=== PATIENT | female | born 1965 | race Caucasian/White ===

== ENCOUNTER 2025-01-10 11:35 | Emergency (ER) | payer BC, SELFPAY ==
--- NOTE | 2025-01-10 | ECG_ITS ---
Test Reason : CP Blood Pressure : */* mmHG Vent. Rate : 74 BPM Atrial Rate : 74 BPM P-R Int : 178 ms QRS Dur : 80 ms QT Int : 378 ms P-R-T Axes : 16 -8 12 degrees QTcB Int : 419 ms Normal sinus rhythm Normal ECG No previous ECGs available Referred By: Generic ED Physician Electronically Signed By: PERLITA GANDHI
[2025-01-10 11:57] VITALS: BP 150/77; PULSE 88; RESP 18; TEMP 37.1; O2SAT 97; BMI 29.2
--- NOTE | 2025-01-10 11:57 | ED_ITS ---
HPI - General Adult General Chief complaint: General Medical Stated complaint: chest tightness, sob, upper neck pain Time Seen by Provider: 01/10/25 13:18 History of Present Illness HPI narrative: [id number], with a history of depression, hypothyroidism on levothyroxine, alopecia who presents to the emergency department for evaluation of multiple complaints. Patient states that she has just not been feeling right for the past 4 days. She states that she went to work this morning at 08:30. 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 She described as a soreness. The pain was worse with movement and lasted a proximally 45 minutes. She states she developed nausea and felt short of breath with the symptom. She also had numbness to the left side of her face. She states that several days ago, she did have a tightness in her left chest and left arm but he has not had recurrence of the symptoms. She states that she has been feeling fatigued over the past 3-4 days. She did have abdominal pain 3 days prior but this resolved after she urinated. She states that she has had intermittent headaches. She denied fever, chills, rhinorrhea, sore throat, cough, dark stools or bloody stools. At the time my evaluation she states that she is having numbness in the left side of her face but her other symptoms have improved. Related Data Previous Rx's ?Medication ?Instructions ?Recorded lorazepam 1 mg tablet (Ativan) 1 mg PO BEDTIME PRN ins omnia #7 01/10/25 tabs Allergies Allergy/AdvReac Type Severity Reaction Status Date / Time amoxicillin Allergy Unknown Verified 01/10/25 12:01 vancomycin Allergy Unknown Verified 01/10/25 12:01 Review of Systems 2 Review of Systems: Yes all other systems are reviewed and are negative [facility] Past Medical History [facility] Narrative: Social history: The patient is a former smoker. She smoked for proximally 23 years but quit 10 years ago. She denies drug use. She drinks alcohol once a week and when she drinks she will drink 3-4 glasses of wine or mixed drinks. Social History Social History Alcohol intake: current Alcohol intake frequency: a few times a month Smoked in Last 30 Days: No Use of substances other than those prescribed or required for medical reasons: No Advance Directives: No Advance Directives Information Provided: Yes Physical Exam ED Vital Signs: Vital Signs - 24 hr 01/10/25 11:57 Temperature 98.7 F Pulse Rate 88 Respiratory Rate 18 Blood Pressure 150/77 H Pulse Oximetry 97 Oxygen Delivery Method Room Air BMI result Body Mass Index 29.2 Vital signs revealed an elevated blood pressure of 150/77 otherwise unremarkable Exam: General: Awake, alert in no distress Head: Normocephalic, atraumatic EENT: PERRL, Lids normal, sclera normal, conjunctiva normal, nose normal , ears normal, throat without erythema or exudates Neck: Supple, no adenopathy Lung: breath sounds symmetric, no wheezing, rales or rhonchi Chest: symmetric movement, nontender Heart: regular rate and rhythm, normal S1, S2 no murmurs or rubs Abdomen: soft, non-tender, nondistended, normal bowel sounds Back: no vertebral tenderness, no CVAT Extremities: no deformities, moves all extremities symmetrically Neuro: General: ?Awake, alert, oriented, normal speech Cranial nerves: ?Cranial nerves ?intact Strength: ?Moves all extremities symmetrically, strength 5/5 Cerebellar: ?Good [id number]-tmhl-[id number]-finger, good rapid finger movement, normal heel to magdaleno Psych: Pleasant, cooperative NIH Stroke Scale Internal: Other (At the time of my initial evaluation) Level of Consciousness: Alert Level of Consciousness Questions: Answers both questions correctly Level of Consciousness Commands: Performs both tasks correctly Best Gaze: Normal Visual: No visual loss Facial Palsy: Normal Motor Arm (Right): No drift Motor Arm (Left): No drift Motor Leg (Right): No drift Motor Leg (Left): No drift Limb Ataxia: Absent Sensory: Normal Best Language: No aphasia Dysarthia: Normal Extinction and Inattention: No abnormality Score: 0 Course Course Course Narrative: This is an RME: Additional HPI, ROS, PE not included below will be deferred to primary provider. RME assessment and note performed by: Dee Landa PA-C This is a [id number]-female, with a hx of depression, hypothyroidism on levothyroxine, alopecia, who presents to the ER with multiple complaints. Reports that while she was at work she suddenly felt pain in the back of her neck > lasted for 10 minutes. Was at a table taking an order and felt suddenly nauseous. She then developed numbness on the left side of her face. Reports that her symptoms started this morning around 8:00AM. Reports headache started in the last 45 minutes. Reported several days ago she had chest tightness that radiated into her left shoulder. She is neurologically intact, NIH 0 Plan: Labs, EKG, further ER eval needed Medical Decision Making Medical Decision Making MDM Narrative: [id number]-female, with a history of depression, hypothyroidism on levothyroxine, alopecia who presents to the emergency department for evaluation of multiple complaints. Patient states that she has just not been feeling right for the past 4 days. She states that she went to work this morning at 08:30. 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 She described as a soreness. The pain was worse with movement and lasted a proximally 45 minutes. She states she developed nausea and felt short of breath with the symptom. She also had numbness to the left side of her face. She states that several days ago, she did have a tightness in her left chest and left arm but he has not had recurrence of the symptoms. She states that she has been feeling fatigued over the past 3-4 days. She did have abdominal pain 3 days prior but this resolved after she urinated. She states that she has had intermittent headaches. She denied fever, chills, rhinorrhea, sore throat, cough, dark stools or bloody stools. At the time my evaluation she states that she is having numbness in the left side of her face but her other symptoms have improved. Vital signs revealed an elevated blood pressure otherwise unremarkable. Physical examination was unremarkable with a normal neurologic exam. Differential diagnosis: ?Includes but is not limited to intracranial hemorrhage, stroke, headache, migraine syndrome , myocardial infarction, myocardial ischemia, anemia, electrolyte abnormalities, Course: My independent interpretation patient's laboratory evaluation is as follows: CBC was normal. CMP was normal. Troponin was below detectable limits. COVID- 19, influenza and RSV were negative. TSH was normal at 2.65. Twelve EKG was unremarkable. Given her normal examination and her negative NIH stroke scale I do not think that the patient has had a stroke at this time but I do not have a clear etiology for her symptoms and I did discuss this with her. The patient has been under increased stress secondary to social issues and secondary to her work schedule. 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 I do not think that the patient's symptoms are due and Tylenol every 2 anxiety but she may have fatigue and exhaustion secondary to her work schedule and I did discuss this with her. Patient was given a return to work note x3 days. He has been having difficulty sleeping therefore she was given a prescription for Ativan 1 mg tablets to take at night to help with her sleep and her insomnia. I did tell the patient that I do not have a cause for her symptoms and that if her symptoms returned or if she developed any new symptoms that were concerning to her she should return to the emergency department so that we can re-evaluate her. Patient was given printed and verbal instructions and discharged home. Admission/Observation Consideration of admission/observation: Escalation of care including admission/observation considered (Yes) Lab Data MDM Lab Attestation statement: I reviewed the patient's lab results. 01/10/25 12:19 01/10/25 12:19 Labs: Lab Results 01/10/25 01/10/25 01/10/25 Range/Units 12:19 12:19 12:19 WBC 8.4 (4.8-10.8) X10*3/uL RBC 4.74 (4.20-5.50) X10*6/uL Hgb 14.9 (12.0-16.0) g/dl Hct 42.0 (37.0-47.0) % MCV 88.6 (80.0-98.0) fL MCH 31.4 (27.0-33.0) pg MCHC 35.5 H (31.0-35.0) g/dl RDW 12.4 (11.0-16.0) % Plt Count 261 (160-400) X10*3/uL MPV 9.2 L (9.4-12.3) fL Immature Gran % (Auto) 0.4 (0.0-0.4) % Neut % (Auto) 63.0 (45-73) % Lymph % (Auto) 28.6 (20-40) % [place] % (Auto) 6.1 (2-11) % Eos % (Auto) 1.4 (0-4) % Baso % (Auto) 0.5 (0-2) % Lymph # (Auto) 2.4 (1.2-4.9) X10*3/uL [place] # (Auto) 0.5 (0.1-1.2) X10*3/uL Eos # (Auto) 0.1 (0.0-0.4) X10*3/uL Baso # (Auto) 0.0 (0.0-0.2) X10*3/uL Abs Immat Gran (auto) 0.03 (0.00-0.03) X10*3/uL Absolute Neuts (auto) 5.3 (2.0-8.3) x10*3/uL Absolute Nucleated RBC 0.000 (0.0-0.012) X10*3/uL Nucleated RBC % (auto) 0.0 (0.0-0.2) /100WBC Sodium Cancelled 138 Potassium Cancelled 4.7 Chloride Cancelled Carbon Dioxide Anion Gap BUN Creatinine Estim Creat Clear Calc Estimated GFR Random Glucose Calcium Magnesium Total Bilirubin Direct Bilirubin AST ALT Alkaline Phosphatase Troponin I High Sens (<3.5-17.0) ng/L Total Protein Albumin Lipase TSH (0.32-4.0) uIU/mL Influenza Type A (PCR) (Negative) Influenza Type B (PCR) (Negative) RSV RNA Qual (PCR) (Negative) SARS-CoV-2 RNA (RT-PCR) (Negative) 01/10/25 01/10/25 01/10/25 Range/Units 12:19 12:19 12:19 WBC (4.8-10.8) X10*3/uL RBC (4.20-5.50) X10*6/uL Hgb (12.0-16.0) g/dl Hct (37.0-47.0) % MCV (80.0-98.0) fL MCH (27.0-33.0) pg MCHC (31.0-35.0) g/dl RDW (11.0-16.0) % Plt Count (160-400) X10*3/uL MPV (9.4-12.3) fL Immature Gran % (Auto) (0.0-0.4) % Neut % (Auto) (45-73) % Lymph % (Auto) (20-40) % [place] % (Auto) (2-11) % Eos % (Auto) (0-4) % Baso % (Auto) (0-2) % Lymph # (Auto) (1.2-4.9) X10*3/uL [place] # (Auto) (0.1-1.2) X10*3/uL Eos # (Auto) (0.0-0.4) X10*3/uL Baso # (Auto) (0.0-0.2) X10*3/uL Abs Immat Gran (auto) (0.00-0.03) X10*3/uL Absolute Neuts (auto) (2.0-8.3) x10*3/uL Absolute Nucleated RBC (0.0-0.012) X10*3/uL Nucleated RBC % (auto) (0.0-0.2) /100WBC Sodium Potassium Chloride 104 Carbon Dioxide Cancelled 25 Anion Gap Cancelled 14 BUN Cancelled Creatinine Estim Creat Clear Calc Estimated GFR Random Glucose Calcium Magnesium Total Bilirubin Direct Bilirubin AST ALT Alkaline Phosphatase Troponin I High Sens (<3.5-17.0) ng/L Total Protein Albumin Lipase TSH (0.32-4.0) uIU/mL Influenza Type A (PCR) (Negative) Influenza Type B (PCR) (Negative) RSV RNA Qual (PCR) (Negative) SARS-CoV-2 RNA (RT-PCR) (Negative) 01/10/25 01/10/25 01/10/25 Range/Units 12:19 12:19 12:19 WBC (4.8-10.8) X10*3/uL RBC (4.20-5.50) X10*6/uL Hgb (12.0-16.0) g/dl Hct (37.0-47.0) % MCV (80.0-98.0) fL MCH (27.0-33.0) pg MCHC (31.0-35.0) g/dl RDW (11.0-16.0) % Plt Count (160-400) X10*3/uL MPV (9.4-12.3) fL Immature Gran % (Auto) (0.0-0.4) % Neut % (Auto) (45-73) % Lymph % (Auto) (20-40) % [place] % (Auto) (2-11) % Eos % (Auto) (0-4) % Baso % (Auto) (0-2) % Lymph # (Auto) (1.2-4.9) X10*3/uL [place] # (Auto) (0.1-1.2) X10*3/uL Eos # (Auto) (0.0-0.4) X10*3/uL Baso # (Auto) (0.0-0.2) X10*3/uL Abs Immat Gran (auto) (0.00-0.03) X10*3/uL Absolute Neuts (auto) (2.0-8.3) x10*3/uL Absolute Nucleated RBC (0.0-0.012) X10*3/uL Nucleated RBC % (auto) (0.0-0.2) /100WBC Sodium Potassium Chloride Carbon Dioxide Anion Gap BUN 16 Creatinine Cancelled 0.82 Estim Creat Clear Calc Cancelled 84.6 Estimated GFR Cancelled Random Glucose Calcium Magnesium Total Bilirubin Direct Bilirubin AST ALT Alkaline Phosphatase Troponin I High Sens (<3.5-17.0) ng/L Total Protein Albumin Lipase TSH (0.32-4.0) uIU/mL Influenza Type A (PCR) (Negative) Influenza Type B (PCR) (Negative) RSV RNA Qual (PCR) (Negative) SARS-CoV-2 RNA (RT-PCR) (Negative) 01/10/25 01/10/25 01/10/25 Range/Units 12:19 12:19 12:19 WBC (4.8-10.8) X10*3/uL RBC (4.20-5.50) X10*6/uL Hgb (12.0-16.0) g/dl Hct (37.0-47.0) % MCV (80.0-98.0) fL MCH (27.0-33.0) pg MCHC (31.0-35.0) g/dl RDW (11.0-16.0) % Plt Count (160-400) X10*3/uL MPV (9.4-12.3) fL Immature Gran % (Auto) (0.0-0.4) % Neut % (Auto) (45-73) % Lymph % (Auto) (20-40) % [place] % (Auto) (2-11) % Eos % (Auto) (0-4) % Baso % (Auto) (0-2) % Lymph # (Auto) (1.2-4.9) X10*3/uL [place] # (Auto) (0.1-1.2) X10*3/uL Eos # (Auto) (0.0-0.4) X10*3/uL Baso # (Auto) (0.0-0.2) X10*3/uL Abs Immat Gran (auto) (0.00-0.03) X10*3/uL Absolute Neuts (auto) (2.0-8.3) x10*3/uL Absolute Nucleated RBC (0.0-0.012) X10*3/uL Nucleated RBC % (auto) (0.0-0.2) /100WBC Sodium Potassium Chloride Carbon Dioxide Anion Gap BUN Creatinine Estim Creat Clear Calc Estimated GFR > 60 Random Glucose Cancelled 108 Calcium Cancelled 9.5 Magnesium Cancelled Total Bilirubin Direct Bilirubin AST ALT Alkaline Phosphatase Troponin I High Sens (<3.5-17.0) ng/L Total Protein Albumin Lipase TSH (0.32-4.0) uIU/mL Influenza Type A (PCR) (Negative) Influenza Type B (PCR) (Negative) RSV RNA Qual (PCR) (Negative) SARS-CoV-2 RNA (RT-PCR) (Negative) 01/10/25 01/10/25 01/10/25 Range/Units 12:19 12:19 12:19 WBC (4.8-10.8) X10*3/uL RBC (4.20-5.50) X10*6/uL Hgb (12.0-16.0) g/dl Hct (37.0-47.0) % MCV (80.0-98.0) fL MCH (27.0-33.0) pg MCHC (31.0-35.0) g/dl RDW (11.0-16.0) % Plt Count (160-400) X10*3/uL MPV (9.4-12.3) fL Immature Gran % (Auto) (0.0-0.4) % Neut % (Auto) (45-73) % Lymph % (Auto) (20-40) % [place] % (Auto) (2-11) % Eos % (Auto) (0-4) % Baso % (Auto) (0-2) % Lymph # (Auto) (1.2-4.9) X10*3/uL [place] # (Auto) (0.1-1.2) X10*3/uL Eos # (Auto) (0.0-0.4) X10*3/uL Baso # (Auto) (0.0-0.2) X10*3/uL Abs Immat Gran (auto) (0.00-0.03) X10*3/uL Absolute Neuts (auto) (2.0-8.3) x10*3/uL Absolute Nucleated RBC (0.0-0.012) X10*3/uL Nucleated RBC % (auto) (0.0-0.2) /100WBC Sodium Potassium Chloride Carbon Dioxide Anion Gap BUN Creatinine Estim Creat Clear Calc Estimated GFR Random Glucose Calcium Magnesium 2.1 Total Bilirubin Cancelled 0.8 Direct Bilirubin Cancelled 0.2 AST Cancelled ALT Alkaline Phosphatase Troponin I High Sens (<3.5-17.0) ng/L Total Protein Albumin Lipase TSH (0.32-4.0) uIU/mL Influenza Type A (PCR) (Negative) Influenza Type B (PCR) (Negative) RSV RNA Qual (PCR) (Negative) SARS-CoV-2 RNA (RT-PCR) (Negative) 01/10/25 01/10/25 01/10/25 Range/Units 12:19 12:19 12:19 WBC (4.8-10.8) X10*3/uL RBC (4.20-5.50) X10*6/uL Hgb (12.0-16.0) g/dl Hct (37.0-47.0) % MCV (80.0-98.0) fL MCH (27.0-33.0) pg MCHC (31.0-35.0) g/dl RDW (11.0-16.0) % Plt Count (160-400) X10*3/uL MPV (9.4-12.3) fL Immature Gran % (Auto) (0.0-0.4) % Neut % (Auto) (45-73) % Lymph % (Auto) (20-40) % [place] % (Auto) (2-11) % Eos % (Auto) (0-4) % Baso % (Auto) (0-2) % Lymph # (Auto) (1.2-4.9) X10*3/uL [place] # (Auto) (0.1-1.2) X10*3/uL Eos # (Auto) (0.0-0.4) X10*3/uL Baso # (Auto) (0.0-0.2) X10*3/uL Abs Immat Gran (auto) (0.00-0.03) X10*3/uL Absolute Neuts (auto) (2.0-8.3) x10*3/uL Absolute Nucleated RBC (0.0-0.012) X10*3/uL Nucleated RBC % (auto) (0.0-0.2) /100WBC Sodium Potassium Chloride Carbon Dioxide Anion Gap BUN Creatinine Estim Creat Clear Calc Estimated GFR Random Glucose Calcium Magnesium Total Bilirubin Direct Bilirubin AST 27 ALT Cancelled 29 Alkaline Phosphatase Cancelled 74 Troponin I High Sens < 2.7 (<3.5-17.0) ng/L Total Protein Cancelled Albumin Lipase TSH (0.32-4.0) uIU/mL Influenza Type A (PCR) (Negative) Influenza Type B (PCR) (Negative) RSV RNA Qual (PCR) (Negative) SARS-CoV-2 RNA (RT-PCR) (Negative) 01/10/25 01/10/25 01/10/25 Range/Units 12:19 12:19 12:19 WBC (4.8-10.8) X10*3/uL RBC (4.20-5.50) X10*6/uL Hgb (12.0-16.0) g/dl Hct (37.0-47.0) % MCV (80.0-98.0) fL MCH (27.0-33.0) pg MCHC (31.0-35.0) g/dl RDW (11.0-16.0) % Plt Count (160-400) X10*3/uL MPV (9.4-12.3) fL Immature Gran % (Auto) (0.0-0.4) % Neut % (Auto) (45-73) % Lymph % (Auto) (20-40) % [place] % (Auto) (2-11) % Eos % (Auto) (0-4) % Baso % (Auto) (0-2) % Lymph # (Auto) (1.2-4.9) X10*3/uL [place] # (Auto) (0.1-1.2) X10*3/uL Eos # (Auto) (0.0-0.4) X10*3/uL Baso # (Auto) (0.0-0.2) X10*3/uL Abs Immat Gran (auto) (0.00-0.03) X10*3/uL Absolute Neuts (auto) (2.0-8.3) x10*3/uL Absolute Nucleated RBC (0.0-0.012) X10*3/uL Nucleated RBC % (auto) (0.0-0.2) /100WBC Sodium Potassium Chloride Carbon Dioxide Anion Gap BUN Creatinine Estim Creat Clear Calc Estimated GFR Random Glucose Calcium Magnesium Total Bilirubin Direct Bilirubin AST ALT Alkaline Phosphatase Troponin I High Sens (<3.5-17.0) ng/L Total Protein 7.8 Albumin Cancelled 4.9 Lipase Cancelled 31 TSH 2.65 (0.32-4.0) uIU/mL Influenza Type A (PCR) NEGATIVE (Negative) Influenza Type B (PCR) NEGATIVE (Negative) RSV RNA Qual (PCR) NEGATIVE (Negative) SARS-CoV-2 RNA (RT-PCR) NEGATIVE (Negative) Independent Interpretation I performed an independent interpretation of an: EKG Interpretation: My interpretation patient's 12 EKG done on 01/10/2025 at 11:49 hours is as follows: Normal sinus rhythm rate of 74, normal GA interval, QRS duration, QTC interval, no ST segment elevation, no ST segment depression, inverted T-waves in lead 3 and V1, no PACs, no PVCs-this is a normal EKG. No previous EKG for comparison. Independent Historian Clinical information obtained from an independent historian. History obtained from or confirmed by: Other (Daughter) Prescription Management I considered prescription management with: Other (Ativan) Chronic Conditions Patient?s care impacted by: Other (Hypothyroidism) Discharge Plan Discharge Clinical Impression: Facial numbness, Chest pain, Abdominal pain Patient Disposition: Home, Self-Care Additional Instructions: At this time, your neurologic examination was unremarkable. I do not think that your having a stroke, bleed in your brain or Helm's palsy (compression of the facial nerve close) You did have abdominal tenderness but I do not think that you have a problem with the gallbladder based on your tenderness and your normal laboratory evaluation. Your EKG was unremarkable and your marker of heart attack troponin was below detectable limits. Your thyroid screening test (TSH) was normal and I do not think that your symptoms are due to your thyroid condition. You are under stress and some of your symptoms may be secondary to over working and not sleeping enough. Therefore I am giving you a work note not to return to work for 3 days. I am also prescribing Ativan 1 mg pills, take 1 pill at night. This will help you sleep and hopefully making feel better. Follow-up with your doctor in 2 days. Please return to the emergency department if your symptoms get worse or if you develop any symptoms that are concerning to you. Prescriptions: New lorazepam [Ativan] 1 mg tablet 1 mg PO BEDTIME PRN (Reason: insomnia) Qty: 7 0RF Stand Alone Forms: Work/School Release Interventions: ED Discharge Assessment Last Done: 01/10/25 14:29 Discharge Date/Time: 01/10/25 14:30 Print Language: Syriac
[2025-01-10 12:25] LABS: MANUAL DIFF FLAG NO
[2025-01-10 12:26] LABS: Hematocrit 42.0 % (37.0-47.0); Hemoglobin 14.9 g/dl (12.0-16.0); Imm Gran Abs Auto 0.03 X10*3/uL (0.00-0.03); Imm Gran Pct Auto 0.4 % (0.0-0.4); Lymphocytes Absolute Auto 2.4 X10*3/uL (1.2-4.9); Mean Corpuscular HGB Conc 35.5 g/dl (31.0-35.0); Mean Corpuscular Hemoglobin 31.4 pg (27.0-33.0); Mean Corpuscular Volume 88.6 fL (80.0-98.0); NRBC Abs Auto 0.000 X10*3/uL (0.0-0.012); NRBC Pct Auto 0.0 /100WBC (0.0-0.2); Platelet Count 261 X10*3/uL (160-400); Red Blood Count 4.74 X10*6/uL (4.20-5.50); White Blood Count 8.4 X10*3/uL (4.8-10.8)
[2025-01-10 12:47] LABS: Alanine Aminotransferase 29 U/L (0-31); Albumin Level 4.9 g/dL (3.5-5.0); Alkaline Phosphatase 74 U/L (39-117); Anion Gap 14 (12-20); Aspartate Amino Transferase 27 U/L (5-31); Blood Urea Nitrogen 16 mg/dL (9-16); Calcium 9.5 mg/dL (8.4-10.2); Carbon Dioxide 25 mmol/L (22-29); Chloride 104 mmol/L (96-108); Creatinine Clr Calc Pharmacy 84.6; Estimated Glomerular Filt Rate > 60; Lipase 31 U/L (8-78); Magnesium 2.1 mg/dL (1.6-2.6); Potassium 4.7 mmol/L (3.3-5.1); Sodium 138 mmol/L (135-145); Total Protein 7.8 g/dL (6.5-8.0)
[2025-01-10 12:49] LABS: Troponin-I High Sensitivity < 2.7 ng/L (<3.5-17.0)
[2025-01-10 13:09] LABS: Resp Syncy Virus RNA Qual PCR NEGATIVE (Negative); SARS COV2 PCR INHOUSE NEGATIVE (Negative)
[2025-01-10 14:13] VITALS: BP 125/77; PULSE 66; RESP 16; TEMP 36.7; O2SAT 94
[2025-01-10 14:29] VITALS: BP 125/77; PULSE 66; RESP 16; TEMP 36.7; O2SAT 94
== END 2025-01-10 14:30 | disposition home or self-care (01) ==
PROVIDERS: Physician Assistant Medical; Emergency Provider Emergency Medicine Emergency Medical Services; PCP Physician Assistant Surgical
DX: R20.0 Anesthesia of skin (principal); R07.9 Chest pain, unspecified; R10.9 Unspecified abdominal pain; R06.02 Shortness of breath; R29.700 NIHSS score 0; E03.9 Hypothyroidism, unspecified; Z87.891 Personal history of nicotine dependence; Z79.899 Other long term (current) drug therapy; Z03.818 Encounter for observation for suspected exposure to other biological agents ruled out; Z72.89 Other problems related to lifestyle; Z56.3 Stressful work schedule
CPT/HCPCS: 36415; 80048; 80076; 83690; 83735; 84443; 84484; 85025; 87637; 93005; 99283; 99284

== ENCOUNTER → 2025-01-10 11:49 | Outpatient (BNV) | payer BC, SELFPAY | PROVIDERS: Emergency Provider Emergency Medicine Emergency Medical Services; PCP Physician Assistant Surgical; Visit Provider Internal Medicine | DX: R07.9 Chest pain, unspecified (principal) | CPT/HCPCS: 93010 ==

== ENCOUNTER 2025-03-23 11:15 | Outpatient (REF) | payer BC, SELFPAY ==
--- NOTE | ~2025-03-23 | MM_ITS ---
EXAMINATION: MM SCREENING DIGITAL BREAST TOMOSYNTHESIS, BILATERAL CLINICAL INFORMATION: Screening. Asymptomatic. COMPARISON: Mammography: Comparison is made with available priors TECHNIQUE: Digital breast mammography with tomosynthesis is performed in both the craniocaudal and mediolateral oblique views along with computer-aided detection (CAD). FINDINGS: There are scattered areas of fibroglandular density. Right: There is architectural distortion in the upper outer breast middle to posterior depth. No suspicious other abnormal findings. No suspicious calcifications. Marker clip. Left: There are no significant masses, abnormal calcifications, or other abnormalities. MM/MM tomosynthesis screening BI IMPRESSION: Additional imaging is recommended ASSESSMENT: BI-RADS Category 0: Incomplete - Need additional Imaging Evaluation RECOMMENDATION: 1. Additional views of the right breast. 2. Targeted ultrasound if warranted after review of the additional views. 3. Radiology department staff will contact the patient for additional imaging. Additional Imaging required Electronically signed by: Adela Segundo DO 03/24/2025 10:04 AM EDT
== END 2025-03-23 11:16 | disposition home or self-care (01) ==
LOC: HO.MAMMO 11:15
PROVIDERS: PCP Physician Assistant Surgical; Visit Provider Obstetrics & Gynecology
DX: Z12.31 Encounter for screening mammogram for malignant neoplasm of breast (principal)
CPT/HCPCS: 77063; 77067

== ENCOUNTER → 2025-03-23 11:15 | Outpatient (BNV) | payer BC, SELFPAY | PROVIDERS: PCP Physician Assistant Surgical; Visit Provider Internal Medicine | DX: Z12.31 Encounter for screening mammogram for malignant neoplasm of breast (principal) | CPT/HCPCS: 77063; 77067 ==

== ENCOUNTER 2025-04-28 12:50 | Outpatient (REF) | payer BC, SELFPAY ==
--- OUTSIDE RECORDS SUMMARY | 2025-04-27 09:00 | XMS_ITS | Encounter Summary ---
Author Organization [facility] Address [address] [place] [address] Phone Care Team Providers Care Channeling Machine Runner Name Role Phone JosePiadotty Hein DO Unavailable [phone] Chidi Adair PA-C Primary Care Provider [phone] Joshua Middleton MD Unavailable [phone] Reason for Visit * Reason Comments Sinus Congestion Virtual clinical sup port Encounter Details Date Type Department Care Team (Late st Contact Info) Description 04/27/2025 9:00 AM EST Telemedicine [facility] VIRTUAL CLINIC SUPPORT [address] [place] [address] Alvarez Cormier PA-C, MPH [address] [address] [email or web address] Sinusitis, unspecified chronicity, unspecified location (Primary Dx) Social History Tobacco Use Types Packs/Day Years Used Date Smoking Tobacco: Former Cigarettes 0.3 23.8 0 12/17/1978 - 10/02/2002 Smokeless Tobacco: Never Alcohol Use Standard Drinks/Week Comments Yes 0 (1 standard drink = 0.6 oz pur e alcohol) 3-4 drinks, 2-4 times a month Child or Family Care Answer Date Record ed Do you have problems with on e of the following making it difficult for you to work, study, or receive health care? No 01/26/2025 Education Answer Date Recorded Are you interested in help w ith more adult education (for example, completing high school, GED, job training, learning the Salvadorean language, technical skills, or developing parenting skills)? No 01/26/2025 Are you concerned about learning? Not on file 01/26/2025 No 01/26/2025 Yes 01/26/2025 Food Answer Date Recorded Within the past 6 months we worried whether our food would run out before we got money to buy more. Never True 01/26/2025 Within the past 6 months the food we bought just didn't last and we didn't have enough money to get more. Never True Residential Stability Answer Date Recor ded What is your housing situation today? I have andi sing 01/26/2025 How many times have you move d in the past 12 months? Zero (I did not move) 01/26/2025 Paying for Meds Answer Date Recorded Do you have trouble paying for medicines? No 01/26/2025 Paying Utility Bills Answer Date Record ed Do you have trouble paying y our heating or electricity bill? I choose not to answer 01/26/2025 Transportation Answer Date Recorded Has the lack of transportati on kept you from medical appointments or from getting medications? No 01/26/2025 Unemployment Answer Date Recorded Are you currently unemployed or working on a part-time or temporary basis, and looking for work? No 09/01/2022 Digital Access Answer Date Recorded No 01/26/2025 Yes 01/26/2025 Do you have reliable internet access at home? Ye s 01/26/2025 Do you have a device (e.g., phone, tablet, computer) with a working camera? Yes 01/26/2025 Intimate Partner Violence Answer Date R ecorded Are you denied basic needs s uch as food, clothing, or medical care? No 01/26/2025 In the past 12 months have y ou been in a relationship with a person who hurts, threatens, or tries to control you? No 01/26/2025 Are you denied basic needs s uch as food, clothing, or medical care? No 01/26/2025 In the past 12 months have y ou been in a relationship with a person who hurts, threatens, or tries to control you? No 01/26/2025 Comments No Sex and Gender Information Value Date Recorded Sex Assigned at Female 10/23/2019 6:16 PM EDT Legal Sex Female 9:38 PM EDT Gender Identity Female 10/23/2019 6:16 PM EDT Sexual Orientation Not on file documented as of this encounter Patient Instructions * Patient Instructions* Alvarez Cormier PA-C, MPH - 04/27/2025 9:00 AM EST supervisor instrument mechanics [place] med sinus rinse and Flonase nasal spray Additional remedies: Congestion: Steam treatment 3x/day (extra few minutes in your shower and standing a few seconds over pot of steamy water 2x/day) Saline nasal spray 3x/day, Sinus rinse for serve congestion (NeilMed Sinus Rinse) Flonase - steroid nasal spray meant to be used once daily. This may or may not help, but it wont hurt. Pseudoephedrine - decongestant - this often found in medications such as Advil Cold & Sinus, socheck the labels. You take this every 4-6 hrs as needed. It can be stimulating, therefore it may keep you up. This medication may also raise blood pressure, so if you have a history of high blood pressure it is best to avoid this. For headache, sore throat, body aches/ general malaise: Tylenol 2 tablets (650mg) every 4-6 hours as needed for discomfort OR Advil 400 mg 3x/day with food OR Aleve 220 mg twice daily. Please be mindful if you are able to take NSAIDs or not. If you are unsure please contact our office. For sore throat, you may try Cepacol throat lozenges or chloraseptic spray, [place]' throat lozenges as needed Cough: Delsym is available over the counter Please be mindful that maybe over the counter cold medications often contain more than one active ingredient. Always check labels to make sure you are not using multiple medications with then same active ingredients. Always read medication labels and contraindications. Seek care if symptoms not resolving over next few days, or if you get a temperature 101 or above, short of breath, or other concerning symptoms. Please let us know immediately if symptoms worsen in any way. documented in this encounter Progress Notes * Alvarez Cormier PA-C, MPH - 04/27/2025 9:00 AM EST Images from the original note were not included. VIRTUAL CLINIC SUPPORT Assessment and Plan: Assessment & Plan Sinusitis, unspecified chronicity, unspecified location Patient with about a week of upper respiratory infection symptoms now has localized to the right greater than left frontal and maxillary sinuses along with postnasal drip and copious nasal discharge.There are no red flags. Patient notes she has had sinus infections in the past and this feels similar. We discussed management in detail. Agreed to send prescription for doxycycline as below. Also recommend starting a sinus rinse such as a NeilMed sinus rinse. We discussed return precautions in themeantime. Symptom management as below and over the counter per avs Encouraged fluids, rest, well rounded diet Discussed return precautions Discussed possible side effects and administration instructions for below medication Orders: doxycycline monohydrate (MONODOX) 100 MG capsule; Take 1 capsule (100 mg total) by mouth 2 (two) times a day. Follow Up: Patient was instructed to seek in person follow up care if symptoms do not improve or worsen in any way. Chief complaint: Patient presents for VIRTUAL VIDEO VISIT for Chief Complaint Patient presents with Sinus Congestion Virtual clinical support History of Present Illness: Ramonita Parker is a 59 y.o. female with concern of last Sunday started with dry scratchy throat,felt had swollen lymph nodes, sore throat now with predominate sinus congestion and discharge R>L, post nasal drip. Went to , had a negative rapid strep test, was started on steroid- on day 4/5. The throat is now improved. Did negative home covid test. No cough No shortness of breath No chest pain Eating and drinking ok Appetite is fine No nausea, vomiting, diarrhea No abdominal pain Went for a walk yesterday to get outside This feels similar to prior sinus infection Using over the counter ibuprofen and antihistamine Granddaughter was sick last week ROS Review of Systems ROS was obtained as per HPI and all other systems reviewed otherwise negative. Visual Examination: [Const]: No acute distress. [HENT]: Normal appearance and symmetry. [Eyes]: Extraocular movements intact, sclerae anicteric without injection. [Resp]: Respiratory rate is regular, speaking in full sentences. No observed coughing, wheezing or distress. [Neuro]: Awake and oriented, grossly normal and symmetric motor function and coordination, normal speech. [Psych]: Behavior appropriate. Normal mood, affect, thought and cognition. Alvarez Cormier PA-C, MPH Virtual Clinic Support documented in this encounter Plan of Treatment Upcoming Encounters Date Type Department Care Team (Late st Contact Info) Description 05/04/2025 3:00 PM EST Office Visit [facility] Internal Medicine [address] [place], [place] [phone] Chidi Adair PA-C [address] [place], [place] [phone] 08/07/2025 4:00 PM EST Office Visit [facility] [address] [place] [address] 3rd Floor, [address] [place] [address] Konstantin Buenrostro MD [address] [place] [phone] documented as of this encounter Visit Diagnoses Diagnosis Sinusitis, unspecified chronicity, unspecified location- Primary Flu vaccine need- Primary Mixed hyperlipidemia Hypothyroidism, unspecified type Generalized anxiety disorder documented in this encounter Additional Health Concerns Assessment Noted Time PHQ-9 Depression Total Score: 14 025 9:19 AM EDT PHQ-2 Depression Total Score: 0 02/25/20 25 8:28 AM EDT documented as of this encounter Care Teams Channeling Machine Runner Relationship Specialty Start Date End Date Chidi Adair PA-C [address] [place] [address] [phone] [email or web address] PCP - General Physician Data Processing Control Clerk 12/26/23 Moira Garcia DO [address] [place] [address] [address] [place] [address] Obstetrics and Gynecology 07/26/21 Joshua Middleton MD [address] [place] [address] [email or web address] Insurance Assigned Provider 06/09/24 documented as of this encounter Additional Source Comments The information contained in this document represents components of the legal health record. It is not the complete legal health record.[facility]
--- NOTE | ~2025-04-28 | MM_ITS ---
EXAMINATION(S): MM DIAGNOSTIC DIGITAL BREAST TOMOSYNTHESIS, RIGHT CLINICAL INFORMATION: -Callback from screening for right breast architectural distortion in the upper part of quadrant middle to posterior depth. -Personal history of surgical excision of fibroadenoma in 1988. COMPARISON: Comparison made to multiple prior, most recent March 23, 2025, and most remote February 19, 2019. TECHNIQUE: Digital breast tomosynthesis is performed in full field ML 90 degrees along with computer-aided detection (CAD). Synthesized 2D images are generated from the tomosynthesis. Spot compression tomosynthesis were obtained. FINDINGS: BREAST COMPOSITION: There are scattered areas of fibroglandular density. RIGHT BREAST: On today's images, the architectural distortion in the upper outer quadrant middle depth has similar appearance to multiple prior studies as far back as at least 2018, and correlates with the area of remote surgical excisional biopsy. No suspicious mammographic findings on today's images. MM/MM tomosynthesis added views R IMPRESSION: RIGHT BREAST: Surgical scar from previous excisional biopsy. Benign, no mammographic evidence of malignancy. Normal interval follow-up is recommended in 12 months. ASSESSMENT: BI-RADS: Category 2: Benign RECOMMENDATION: 1 year F/U Results were provided to the patient at time of visit by the technologist. This patient's information was entered into a reminder system with a target due date for their next mammogram. Electronically signed by: Delano Beaulieu MD 04/28/2025 01:59 PM [facility]
--- OUTSIDE RECORDS SUMMARY | 2025-04-28 16:28 | XMS_ITS | Encounter Summary ---
Author Organization [facility] Address [address] [place] [address] Phone Care Team Providers Care Game Farm Helper Name Role Phone JoseRoselynMoiraniki Hein DO Unavailable [phone] Chidi Adair PA-C Primary Care Provider [phone] Joshua Middleton MD Unavailable [phone] Reason for Referral * Hospital - Outpatient - Closed Specialty Diagnoses / Procedures Referred By Colin fabian Referred To Contact Diagnoses Transient cerebral ischemia, unspecified type Procedures MCT (Mobile Cardiac Telemetry) Event Monitor Looping up to 30 Days Chidi Adair PA-C [address] [place] [address] Phone: tel: fax: [email or web address] Referral ID Status Reason Start Date Expiration Date Visits Re quested Visits Authorized [id number] Closed 01/28/2025 01/28/2026 1 1 Encounter Details Date Type Department Care Team (Latest Contact Info) Description 03/04/2025 Ancillary Orders [facility] Internal Medicine [address] [place], [place] [phone] Chidi Adair PA-C [address] [place], [place] [phone] [email or web address] Routine general medical examination at a health care facility (Primary Dx); Acquired hypothyroidism; Generalized anxiety disorder; Breast cancer screening by mammogram; Transient cerebral ischemia, unspecified type; Generalized abdominal pain; Hypertriglyceridemia Social History Tobacco Use Types Packs/Day Years [...] high school, GED, job training, learning the Haitian language, technical skills, or developing parenting skills)? [...] on file documented as of this encounter Plan of Treatment Upcoming Encounters Date Type Department Care Team (Late st Contact Info) Description 05/04/2025 3:00 PM EST Office Visit [facility] [place] Internal Medicine [address] [place] [address] Chidi Adair PA-C [address] [place] [address] 08/07/2025 4:00 PM EST Office Visit [facility] [address] [place] [address] [address]rd Floor, [address] [place] [address] Konstantin Buenrostro MD [address] [place] [phone] documented as of this encounter Results * MCT (Mobile Cardiac Telemetry) (03/31/2025 12:52 PM EDT) Anatomical Region Laterality Modality Heart Other Narrative 04/02/2025 12:20 PM EDT Event monitor report Indication TIA Findings: The underlying rhythm is sinus rhythm average heart rate 60 minimum heart rate 44 maximal heart rate 101. There are very rare PVCs. There are very rare premature atrial contractions. There is no evidence of atrial fibrillation. Conclusion: Normal event monitor. Chidi Adair PA-C CV CARDIAC SERVICES ORDERABLE S Final Result documented in this encounter Visit Diagnoses Diagnosis Transient cerebral ischemia, unspecified type Routine general medical examination at a health care facility- Primary Acquired hypothyroidism Unspecified hypothyroidism Generalized anxiety disorder Breast cancer screening by mammogram Transient cerebral ischemia, unspecified type Generalized abdominal pain Abdominal pain, generalized Hypertriglyceridemia Pure hyperglyceridemia Flu vaccine need- Primary Mixed hyperlipidemia Hypothyroidism, unspecified type Generalized anxiety disorder documented in this encounter Additional Health Concerns Assessment Noted Time PHQ-9 Depression Total Score: 14 01/26/ 025 9:19 AM EDT PHQ-2 Depression Total Score: 0 02/25/20 25 8:28 AM EDT documented as of this encounter Care Teams Game Farm Helper Relationship Specialty Start Date End Date Chidi Adair PA-C [address] [place] [email or web address] PCP - General Physician Stonework Supervisor 12/26/23 Moira Garcia DO [address] [place] [address] [address] [place] [address] Obstetrics and Gynecology 07/26/21 Joshua Middleton MD [address] [place] [address] [email or web address] Insurance Assigned Provider 06/09/24 documented as of this encounter Additional Source Comments The information contained in this document represents components of the legal health record. It is not the complete legal health record.[facility]
--- OUTSIDE RECORDS SUMMARY | 2025-04-28 16:28 | XMS_ITS | Encounter Summary ---
Author Organization [facility] Address [address] [place] [address] Phone Care Team Providers Care Ticket Collector Or Usher Name Role Phone JoseRoselynMoiraniki Hein DO Unavailable Chidi Adair PA-C Primary Care Provider [phone] Joshua Middleton MD Unavailable [phone] Encounter Details Date Type Department Care Team (Late st Contact Info) Description 01/28/2025 Procedure Pass [facility] [address] [place] [address] Social History Tobacco Use Types Packs/Day Years [...] high school, GED, job training, learning the Cambodian language, technical skills, or developing parenting skills)? [...] your housing situation today? I have andi obando 01/26/2025 How many times have you move [...] Description 05/04/2025 3:00 PM EST Office Visit [facility] [place] Internal Medicine [address] [place] [address] Chidi Adair PA-C [address] [place] [address] 08/07/2025 4:00 PM EST Office Visit [facility] [address] [place] [address] [address]rd Floor, [address] [place] [address] Konstantin Buenrostro MD [address] [place] [address] documented as of this encounter Visit Diagnoses Not on filedocumented in this encounter Additional Health Concerns Assessment Noted Time PHQ-9 Depression Total Score: 14 025 9:19 AM EDT PHQ-2 Depression Total Score: 0 02/25/20 25 8:28 AM EDT documented as of this encounter Care Teams Ticket Collector Or Usher Relationship Specialty Start Date End Date Chidi Adair PA-C [address] [place] [address] [email or web address] PCP - General Physician Reinforced Concrete Inspector 12/26/23 Moira Garcia DO [address] [place] [address] [address] [place] [address] Obstetrics and Gynecology 07/26/21 Joshua Middleton MD [address] [place] [phone] Insurance Assigned Provider 06/09/24 documented as of this encounter Additional Source Comments The information contained in this document represents components of the legal health record. It is not the complete legal health record.[facility]
--- OUTSIDE RECORDS SUMMARY | 2025-04-28 16:29 | XMS_ITS | Encounter Summary ---
Author Organization [facility] Address [address] [place] [phone] Phone Care Team Providers Care National Accounts Sales Name Role Phone JoseMoira Melvina ESPAÑA Unavailable [phone] Chidi Adair PA-C Primary Care Provider [phone] Joshua Middleton MD Unavailable [phone] Encounter Details Date Type Department Care Team (Late st Contact Info) Description 03/24/2025 Orders Only [facility] [place] Internal Medicine 40 [place] [address] Provider, MD [place] [address] [place], [place] [phone] Social History Tobacco Use Types Packs/Day Years [...] high school, GED, job training, learning the [place] Citizen language, technical skills, or developing parenting skills)? [...] Description 05/04/2025 3:00 PM EST Office Visit [facility] Internal Medicine [address] [place] [address] Chidi Adair PA-C [address] [place] [address] [email or web address] 08/07/2025 4:00 PM EST Office Visit [facility] [address] [place] [address] [address]rd Floor, [address] [place] [address] Konstantin Buenrostro MD [address] [place] [address] documented as of this encounter Procedures Procedure Name Priority Date/Time Associated Diagnosis Comments HM MAMMOGRAPHY Routine 03/23/2025 10:43 AM EDT documented in this encounter Results * HM MAMMOGRAPHY FOR RESULT ENTRY ONLY (03/23/2025 10:43 AM EDT) us Historical Provider HEALTH MAINTENANCE Final Result documented in this encounter Visit Diagnoses Not on filedocumented in this encounter Additional Health Concerns Assessment Noted Time PHQ-9 Depression Total Score: 14 025 9:19 AM EDT PHQ-2 Depression Total Score: 0 02/25/20 25 8:28 AM EDT documented as of this encounter Care Teams National Accounts Sales Relationship Specialty Start Date End Date Chidi Adair PA-C [address] [place] [address] [email or web address] PCP - General Physician Refinisher 12/26/23 Moira Garcia DO [address] [place] [address] [address] [place] [address] Obstetrics and Gynecology 07/26/21 Joshua Middleton MD [address] [place] [address] [email or web address] Insurance Assigned Provider 06/09/24 documented as of this encounter Additional Source Comments The information contained in this document represents components of the legal health record. It is not the complete legal health record.[facility]
--- OUTSIDE RECORDS SUMMARY | 2025-04-28 16:29 | XMS_ITS | Encounter Summary ---
Author Organization [facility] Address [address] [place] [address] Phone Care Team Providers Care Senior Clinician Name Role Phone JoseRoselynMoiraniki Hein DO Unavailable [phone] Chidi Adair PA-C Primary Care Provider [phone] Joshua Middleton MD Unavailable Reason for Visit * Reason Onset Date Comments Triage 04/22/2025 Green Call + Sor e Throat Encounter Details Date Type Department Care Team (Late st Contact Info) Description 04/22/2025 Telephone Granular [facility] Internal Medicine [address] [place], [place] [phone] Chidi Adair PA-C [address] [place], [place] [phone] [email or web address] Triage (Green Call + Sore Throat) Social History Tobacco Use Types Packs/Day Years [...] high school, GED, job training, learning the Irish language, technical skills, or developing parenting skills)? [...] on file documented as of this encounter Progress Notes * Truman Silva - 04/22/2025 8:35 AM EST Complete the Following for ALL Patient Symptoms [facility] Red [place] Yellow Green Tool Call Back Number: (& caller's name if not the patient) [phone] Description of Symptoms: What symptoms are you experiencing? Pt stated that she has a sore throat, worsening over time When did the symptoms start? Yesterday Has this happened before? Yes 1) Enter the Reason for Call (TRIAGE) & RFC Comment (COLOR + Symptom) (Ex: TRIAGE - YELLOW, tick bite ) 2) Select the color-based designation below before taking next steps & documenting the outcome Green Call Designation & Outcome Green Symptom(s): Triage (Green Call + Sore Throat) Should Be Booked Within 2-3... Days [] Weeks [] Schedule an Appointment Based on the Listed Green Options in RYOG (PC & Pedi) OR Offer Care Alternative Options (UC/VUC) from [facility]OG Reference Guide Tabs Scheduling Outcome: Patient recommended and agreeable to using virtual or local urgent care options. Route TE (or not) according to Practice-Specific guidelines. documented in this encounter Plan of Treatment Upcoming Encounters Date Type Department Care Team (Late st Contact Info) Description 05/04/2025 3:00 PM EST Office Visit [facility] [place] Internal Medicine [address] [place] [address] Chidi Adair PA-C [address] [place] [address] 08/07/2025 4:00 PM EST Office Visit [facility] [address] [place] [address] [address]rd Floor, [address] [place] [address] Konstantin Buenrostro MD [address] [place] [address] [email or web address] documented as of this encounter Visit Diagnoses Not on filedocumented in this encounter Additional Health Concerns Assessment Noted Time PHQ-9 Depression Total Score: 14 025 9:19 AM EDT PHQ-2 Depression Total Score: 0 02/25/20 25 8:28 AM EDT documented as of this encounter Care Teams Senior Clinician Relationship Specialty Start Date End Date Chidi Adair PA-C [address] [place] [address] [email or web address] PCP - General Physician Drum Stock Clerk 12/26/23 Moira Garcia DO [address] [place] [address] [address] [place] [address] Obstetrics and Gynecology 07/26/21 Joshua Middleton MD [address] [place] [address] [email or web address] Insurance Assigned Provider 06/09/24 documented as of this encounter Additional Source Comments The information contained in this document represents components of the legal health record. It is not the complete legal health record.[facility]
--- OUTSIDE RECORDS SUMMARY | 2025-04-28 16:29 | XMS_ITS | Encounter Summary ---
Author Organization [facility] Address [address] [place] [address] Phone Care Team Providers Care Lollypop Machine Operator Name Role Phone JoseMoira Melvina ESPAÑA Unavailable [phone] Chidi Adair PA-C Primary Care Provider [phone] Joshua Middleton MD Unavailable [phone] Encounter Details Date Type Department Care Team (Late st Contact Info) Description 04/06/2025 Orders Only [facility] [place] Internal Medicine [address] [facility] [place] [address] Provider, MD [place] [address] [place], [place] [id number] Social History Tobacco Use Types Packs/Day Years [...] high school, GED, job training, learning the Thai language, technical skills, or developing parenting skills)? [...] Description 05/04/2025 3:00 PM EST Office Visit [facility] Internal Medicine [address] [place] [address] Chidi Adair PA-C [address] [place] [address] 08/07/2025 4:00 PM EST Office Visit [facility] [address] [place] [address] [address] Floor, [address] [place] [address] Konstantin Buenrostro MD [address] [place] [address] documented as of this encounter Procedures Procedure Name Priority Date/Time Associated Diagnosis Comments HM MAMMOGRAPHY Routine 03/23/2025 3:29 PM EDT documented in this encounter Results * HM MAMMOGRAPHY FOR RESULT ENTRY ONLY (03/23/2025 3:29 PM EDT) us Historical Provider HEALTH MAINTENANCE Final Result documented in this encounter Visit Diagnoses Not on filedocumented in this encounter Additional Health Concerns Assessment Noted Time PHQ-9 Depression Total Score: 14 025 9:19 AM EDT PHQ-2 Depression Total Score: 0 02/25/20 25 8:28 AM EDT documented as of this encounter Care Teams Lollypop Machine Operator Relationship Specialty Start Date End Date Chidi Adair PA-C [address] [place] [address] [email or web address] PCP - General Physician Hebrew Professor 12/26/23 Moira Garcia DO [address] [place] [address] Drive [address] [place] [address] Obstetrics and Gynecology 07/26/21 Joshua Middleton MD [address] [place] [address] [email or web address] Insurance Assigned Provider 06/09/24 documented as of this encounter Additional Source Comments The information contained in this document represents components of the legal health record. It is not the complete legal health record.[facility]
--- OUTSIDE RECORDS SUMMARY | 2025-04-28 16:29 | XMS_ITS | Encounter Summary ---
Author Organization [facility] Address [address] [place] [address] Phone Care Team Providers Care Cloth Covered Helmet Puller Name Role Phone JoseMoira Melvina ESPAÑA Unavailable [phone] Chidi Adair PA-C Primary Care Provider [phone] Joshua Middleton MD Unavailable [phone] Encounter Details Date Type Department Care Team (Late st Contact Info) Description 04/28/2025 Orders Only [facility] [place] Internal Medicine 40 [facility] [place] [address] Provider, MD [place] [address] [place], [place] [id number] Social History Tobacco Use Types Packs/Day Years [...] high school, GED, job training, learning the [place] language, technical skills, or developing parenting skills)? [...] Description 05/04/2025 3:00 PM EST Office Visit [facility] Internal Medicine [address] [place] [address] Chidi Adair PA-C [address] [place] [address] 08/07/2025 4:00 PM EST Office Visit [facility] [address] [place] [address] [address] Floor, [address] [place] [address] Konstantin Buenrostro MD [address] [place] [address] documented as of this encounter Procedures Procedure Name Priority Date/Time Associated Diagnosis Comments HM MAMMOGRAPHY Routine 04/28/2025 3:08 PM EST documented in this encounter Results * HM MAMMOGRAPHY FOR RESULT ENTRY ONLY (04/28/2025 3:08 PM EST) us Historical Provider HEALTH MAINTENANCE Final Result documented in this encounter Visit Diagnoses Not on filedocumented in this encounter Additional Health Concerns Assessment Noted Time PHQ-9 Depression Total Score: 14 025 9:19 AM EDT PHQ-2 Depression Total Score: 0 02/25/20 25 8:28 AM EDT documented as of this encounter Care Teams Cloth Covered Helmet Puller Relationship Specialty Start Date End Date Chidi Adair PA-C [address] [place] [address] PCP - General Physician Electric Wheelchair Repairer 12/26/23 Moira Garcia DO [address] [place] [address] [address] [place] [address] Obstetrics and Gynecology 07/26/21 Joshua Middleton MD [address] [place] [address] [email or web address] Insurance Assigned Provider 06/09/24 documented as of this encounter Additional Source Comments The information contained in this document represents components of the legal health record. It is not the complete legal health record.[facility]
--- OUTSIDE RECORDS SUMMARY | 2025-04-28 16:29 | XMS_ITS | Clinical Summary ---
Author Organization [facility] Address [address] [place] [id number] Phone Care Team Providers Care Soil Scientist Name Role Phone Moira Garcia Melvina ESPAÑA Unavailable [phone] Chidi Adair PA-C Primary Care Provider [phone] Joshua Middleton MD Unavailable [phone] Allergies Active Allergy Reactions Criticality Noted Date Comments Amoxicillin Rash Low 12/03/2017 Vancomycin Hives,Itching,Palpitations Low 1 Medications MELATONIN ORAL Take 10 mg by mouth nightly at bedtime. Active spironolactone (ALDACTONE) 50 MG tablet Take 150 mg by mouth daily. 4 Active cholecalciferol (VITAMIN D3) 2,000 unit tablet Take 4,000 Units by mouth daily. Active ascorbic acid (VITAMIN C ORAL) Take by mouth. Active FA/niacinamide/c upric ox/Zn ox (NICOTINAMIDE ORAL) Take 500 mg by mouth daily. Active estradioL (VAGIFEM) [address] 10 mcg vaginally 2 (two) times a week. 4 Active levothyroxine (SYNTHROID, LEVOTHROID) 88 MCG tabletIndication s:Hypothyroidism TAKE 1 TABLET(88 MCG) BY MOUTH EVERY MORNING 90 tablet 3 5 Active sertraline (ZOLOFT) 50 MG tabletIndication s:Anxiety disorder,Anaclit ic depression TAKE 1 TABLET(50 MG) BY MOUTH DAILY 90 tablet 3 5 Active aspirin 81 mg chewable tabletIndication s:Intermittent chest pain Take 1 tablet (81 mg total) by mouth daily. 30 tablet 2 5 Active rhubarb root extract (ESTROVERA ORAL) Take by mouth. Active LORazepam (ATIVAN) 0.5 MG tabletIndication s:Anxiety disorder Take 1 tablet (0.5 mg total) by mouth daily as needed for anxiety (must last one month). 15 tablet 5 Active atorvastatin (LIPITOR) 20 MG tabletIndication s:Hypertriglycer idemia TAKE 1 TABLET(20 MG) BY MOUTH DAILY 90 tablet 3 5 Active doxycycline monohydrate (MONODOX) 100 MG capsuleIndicatio ns:Sinusitis, unspecified chronicity, unspecified location Take 1 capsule (100 mg total) by mouth 2 (two) times a day. 14 capsule 5 Active Active Problems Problem Noted Date Diagnosed Date Mixed hyperlipidemia 04/27/2025 Hordeolum externum of right lower eyelid 025 Assessment & Plan (02/24/2025 9:48 AM EDT): Going on a couple days Mild itch and pain when she touches it No discharge, no s/s fo cellulitis No vision changes Looks to be stye on exam Spoke about warm compresses + will send erythromycin ointment Will reach out if worsening or change of symptoms, and will come in office for eval Patient verbalized understanding and agrees with this plan of care Reviewed signs and symptoms and reasons to seek medical care Orders: erythromycin (ROMYCIN) ophthalmic ointment; Place 0.5 inches into each eye 4 (four) times a day for 7 days. Generalized abdominal pain 01/28/2025 Assessment & Plan (01/28/2025 1:38 PM EDT): Patient was experiencing abd pain with changes in BMs and skin scratching. Her grand-daughter is currently being worked up for celiac disease. Her son has crohn's disease. She has cut of gluten and her symptoms have improved, -continue gluten free diet -obtain Tissue- glutlutaminase IgA/IgG and Immunoglobulin A -patient to follow up with GI for EGD and colonoscopy. Transient cerebral ischemia 01/13/2025 Assessment & Plan (01/28/2025 7:19 PM EDT): Patient experienced a two hour history of left facial numbness with the speech difficultly, which resolved on its own while in the ER at [facility] [place] [place] for chest pain back on 01/10/25. Patient stated they did not do a head CT only an EKG and lab work. Given her description of the symptoms I am concerned she may have had a TIA. -CT head -US carotids -echocardiogram -Holter -30 day -repeat lipid panel (based on triglycerides at 249) we will start lipitor 20mg daily) -hgb A1c noted at 5.3. -continue ASA 81mg daily Assessment & Plan (01/13/2025 9:34 AM EDT): She has concerns regarding a possible TIA for which she went to the emergency department on 01/10/2025 at [facility]. We unfortunately do not have these records of her hospitalization. She notes that she has been experiencing intermittent chest pain and on Sunday she experienced unilateral left-sided facial numbness that lasted for approximately 1 hour. She denies any weakness in her extremities or any slurring of her speech. She notes no imaging of her head. This very well could be a TIA, however unable to fully confirm due to not having the hospital records. Discussed risk management of TIAs including optimizing overall health and decreasing risk including decreasing risk of diabetes, hypertension, hyperlipidemia. Cholesterol not at goal but not terrible. Blood pressure within normal limits. Fasting glucose elevated, will obtain an A1c. ABCD2 score of 3 (+2 for symptoms lasting an hour, speech disturbances +1). Given this, will initiate baby aspirin 81 mg daily as a preventative measure. Routine general medical exam ination at a health care facility 12/26/2023 Assessment & Plan (01/28/2025 1:02 PM EDT): We will obtain a CMP, fasting glucose, lipid panel and TSH level Mammogram ordered Will physical 1 year Assessment & Plan (12/26/2023 10:21 AM EDT): Obtain CMP and TSH level Follow-up 1 year for annual physical Breast cancer screening by mammogram 12/26/2023 Assessment & Plan (01/28/2025 1:04 PM EDT): Mammogram ordered Assessment & Plan (12/26/2023 10:21 AM EDT): Mammogram ordered for [facility] [employer] [facility] Hypothyroidism 06/05/2018 Assessment & Plan (01/28/2025 12:58 PM EDT): Patient with a history of hypothyroidism with her last TSH being in March 2024 revealing 2.36. She is maintained on levothyroxine 88 mcg daily which will be continued. Will obtain a TSH level Assessment & Plan (12/26/2023 10:22 AM EDT): Last TSH was back in January 2023 which revealed 3.25. Patient is maintained on levothyroxine 50 mcg daily. Continue levothyroxine and obtain a repeat TSH level Anxiety disorder 06/05/2018 Assessment & Plan (01/28/2025 1:00 PM EDT): Patient with a history of anxiety who is maintained on Zoloft 50 mg daily and lorazepam 0.5 mg p.o. daily as needed. [facility] verified we will continue these current medications Assessment & Plan (12/26/2023 10:22 AM EDT): Continue Zoloft 50 mg p.o. daily. Continue lorazepam 0.5 mg p.o. daily as needed [facility] verified Resolved Problems Problem Noted Date Diagnosed Date Resolved Date Hypertriglyceridemia 01/28/2025 025 Assessment & Plan (01/28/2025 1:55 PM EDT): On her most recent labs from the emergency room she was noted to have an elevated triglyceride level of 249. Prior to levels have been slightly elevated but not over 200. I will start her on Lipitor 20 mg p.o. daily and obtain a repeat lipid panel. Patient also asked for cardiology evaluation given her family history of TIAs and quadruple bypass. [facility] cardiology referral placed. Impaired fasting glucose 01/13/2025 Assessment & Plan (01/13/2025 9:34 AM EDT): Patient is recent lab work done in the setting of her physical coming up, fasting glucose 119. Will obtain an A1c to further assess. Intermittent chest pain 01/13/2025 08/2 12/2024 Assessment & Plan (01/13/2025 9:34 AM EDT): She notes that recently she has been experiencing intermittent substernal chest pain with associated neck pain and shoulder pain, although on the right. Given her symptoms, we will obtain an exercise stress test to further assess. Will also optimize overall health and decrease her risk factors. Mass of right lower extremity 11/12/2024 01/28/2025 Assessment & Plan (11/12/2024 4:45 PM EDT): Mass noted on the distal lateral aspect of the right thigh by her PT. She is unclear of how long it has been present or if it has grown in size. She does not pain to palpation of the area. -US RLE non-vascular for further evaluation. Palpitations 06/18/2024 01/28/2025 Assessment & Plan (06/18/2024 1:42 PM EST): Heart rate here in the office is noted to be 70 however patient mentions some shortness of breath and palpitations. She denies any chest pain. Will obtain an EKG here in the office which revealed sinus rhythm heart rate 61 Left upper quadrant abdominal pain 06/18/2024 01/28/2025 Assessment & Plan (06/18/2024 1:42 PM EST): Patient with recent episode of abdominal pain nausea, vomiting and diarrhea that started Sunday evening and lasted through Sunday. Patient states that she felt like she was well-hydrated however she feels extremely fatigued and off. She also noted to have low blood pressure and feeling of palpitations. She states overall she just does not feel right. On physical examination she is noted to have exquisite tenderness to palpation in the left upper quadrant extending into the epigastric region with rebound. Concern for pancreatitis vs diverticulitis -Given the concern will send patient to the emergency department for further work up with CT abd/pelvis. Patient prefers to go to [facility]. Patient would like to be transported by her sister or child instead of via ambulance. Nursing has placed an expect to the emergency department. COVID 06/06/2024 01/28/2025 Assessment & Plan (06/06/2024 9:30 AM EST): She began experiencing a low-grade fever and cough 1 week ago. On Sunday she tested herself for COVID and was noted to be positive. She presents today with continued cough and sinus congestion, but overall improvement. She is requesting a work note in case it is asked of her as she has been out of work all week. Work note given to the patient. Advised patient of symptomatic treatment. Advised ER protocol and office follow-up. Lungs were clear to auscultation bilaterally so low concern for worsening of the disease or underlying pneumonia. Trapezius strain 03/12/2024 01/28/2025 Assessment & Plan (03/12/2024 1:47 PM EDT): She has strain to her trapezius musculature b/l, worse on right. Will enc heat/ massage and ref to PT she will call to book the appt and call back if worse, or if other s/s occur Muscle cramps 03/12/2024 01/28/2025 Assessment & Plan (03/12/2024 1:50 PM EDT): She reports severe muscle cramps. She is taking spironolactone 150 mg po qd- for alopecia. I suspect this is partially causative. Hydration discussed and she can try to add powerade zero 2 bottles per day for the next 10 days to see if this helps reduce the cramps Gastroenteritis 03/12/2024 01/28/2025 Assessment & Plan (03/12/2024 1:46 PM EDT): Was ill 03/06, now resolved. Eating and drinking well. Cont same Alopecia 12/26/2023 01/28/2025 Assessment & Plan (12/26/2023 10:23 AM EDT): Patient follows with dermatology and is maintained on Aldactone 150 mg daily and nicotinamide. Sacroiliitis 06/22/2023 12/26/2023 Assessment & Plan (06/22/2023 1:57 PM EST): She has developed sacroiliitis on the right- will ref to PT externally- she is aware to make her own appt.can try OTC meds/ topical if desired Info provided in AVS Acquired hammer toe of right foot 09/01/2022 12/26/2023 Blepharitis of left upper eyelid 07/26/2021 12/26/2023 Assessment & Plan (07/26/2021 4:57 PM EST): This could have been a stye that has developed into a broad-based phlegmon of the upper eyelid. Treat topically with erythromycin and orally with doxycycline. Patient will call if symptoms worsen. 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 Temporomandibular joint disorder 06/05/2018 12/26/2023 Vertigo 06/05/2018 12/26/2023 Encounters Date Type Department Care Team Description 04/28/2025 Orders Only [facility] Internal Medicine [address] [place] [address] Provider, MD [place] 04/27/2025 9:00 AM EST Telemedicine [facility] [address] [place] [address] Alvarez Cormier PA-C, MPH Sinusitis, unspecified chronicity, unspecified location (Primary Dx) 04/22/2025 Telephone [facility] Internal [facility] [address] [place] [address] Chidi Adair PA-C Triage (Green Call + Sore Throat) 04/06/2025 Orders Only [facility] Internal Medicine [address] [place] [address] Clifton Soares MD 03/31/2025 Orders Only [facility] Internal [facility] [address] [place] [address] Clifton Soares MD 03/24/2025 Orders Only [facility] Internal [facility] [address] [place] [address] Cl[place] Soares MD 03/22/2025 Refill [facility] Internal [facility] [address] [place] [address] Chidi Adair PA-C Medication Refill 03/11/2025 Orders Only [facility] [address] [place] [address] Cl[place] Soares MD 03/04/2025 Telephone [facility] [address] [place] [address] Chidi Adair PA-C Results 03/04/2025 Ancillary Orders [facility] [address] [place] [address] Chidi Adair PA-C Routine general medical examination at a health care facility (Primary Dx); Acquired hypothyroidism; Generalized anxiety disorder; Breast cancer screening by mammogram; Transient cerebral ischemia, unspecified type; Generalized abdominal pain; Hypertriglyceridemi a 03/03/2025 12:05 PM EDT - 03/03/2025 11:59 PM EDT Hospital Encounter Non-Invasive Cardiology [address] [place] [address] Chidi Adair PA-C Discharge Disposition: Home or Self Care 03/03/2025 11:27 AM EDT - 03/03/2025 12:04 PM EDT Hospital Encounter [facility] [address] [place] [address] Chidi Adair PA-C Discharge Disposition: Home or Self Care 03/03/2025 Orders Only [facility] Internal Medicine [address] [place] [address] Provider, MD [place] 02/24/2025 9:40 AM EDT Telemedicine [facility] [address] [place] [address] Michaela Pathak, SOLID PLASTERER Hordeolum externum of right lower eyelid (Primary Dx) 02/23/2025 12:29 PM EDT - 02/23/2025 11:59 PM EDT Hospital Encounter [facility], Wy Scan [address] [address] Chidi Adair PA-C Discharge Disposition: Home or Self Care 02/23/2025 Nurse Triage [facility] Internal Medicine [address] [place] [address] Chidi Adair PA-C Eye Problem 01/29/2025 1:56 PM EDT - 01/29/2025 11:59 PM EDT Hospital Encounter [facility] [address] [place] [address] Chidi Adair PA-C Discharge Disposition: Home or Self Care 01/28/2025 2:36 PM EDT - 01/28/2025 11:59 PM EDT Hospital Encounter [facility] [address] [place] [address] Chidi Adair PA-C Discharge Disposition: Home or Self Care 01/28/2025 1:00 PM EDT Office Visit [facility] Internal Medicine [address] [place] [address] Chidi Adair PA-C Routine general medical examination at a health care facility (Primary Dx); Acquired hypothyroidism; Generalized anxiety disorder; Breast cancer screening by mammogram; Transient cerebral ischemia, unspecified type; Generalized abdominal pain; Hypertriglyceridemi a 01/28/2025 Procedure Pass Non-Invasive Cardiology [address] [place] [address] 01/28/2025 Procedure Pass [facility] Echo Lab [address] [place] [address] 01/28/2025 Procedure Pass [facility], Ct Scan - [facility] [address] [place] [address] 01/28/2025 Orders Only [facility] Internal Medicine [address] [place] [address] Provider, MD Cl[place] from Last 3 Months Immunizations Immunization Administration Dates Next Due COVID-19 (Pre-03/26) Moderna Vaccine, mRNA, PF 07/03/2020,06/05/2020 INFLUENZA, SPLIT VIRUS, TRIVALENT PF 03/06/2017, 03/08/2015 INFLUENZA, SPLIT VIRUS, TRIV ALENT W/ PRESERVATIVE IM 03/08/2015 Influenza Quadrivalent MDCK Preservative Free IM 03/23/2023,03/15/2022,08/15/2019 Influenza Quadrivalent Preservative Free IM 07/2018 Influenza trivalent preserva tive free intradermal 02/12/2013 Influenza, Unspecified Formulation 08/15/2019, PPD Test 04/03/2012 Tdap 03/15/2022,07/14/2015,01/12/2012 Zoster recombinant 01/28/2025,10/14/2020 Family History Medical History Relation Comments Alcohol abuse Brother 1 Alcohol abuse Brother 2 Cirrhosis Brother 2 Liver cancer Brother 2 Diabetes type I Brother 3 Melanoma Brother 3 No Known Problems Daughter 1 No Known Problems Daughter 2 Diabetes Father Heart disease Father Hypertension Father Stroke Father Lung cancer Mother heavy smoker Alcohol abuse Sister 1 Alcohol abuse Sister 2 No Known Problems Son 1 No Known Problems Son 2 Relation Status Comments Brother 1 (Age 40) Brother 2 (Age 55) Brother 3 Alive Daughter 1 Alive Daughter 2 Alive Father (Age 66) Mother Sister 1 Alive Sister 2 Alive Son 1 Alive Son 2 Alive Social History Tobacco Use Types Packs/Day Years [...] high school, GED, job training, learning the Nepalese language, technical skills, or developing parenting skills)? [...] PM EDT Sexual Orientation Not on file Last Filed Vital Signs Vital Sign Reading Time Taken Comments Blood Pressure 112/62 01/28/2025 1:00 PM EDT Pulse 65 01/28/2025 1:00 PM EDT Temperature 36.2 C (97.2 F) 01/13/2025 8:49 AM EDT Respiratory Rate 15 01/28/2025 1:00 PM EDT Oxygen Saturation 96% 01/28/2025 1:00 PM EDT Inhaled Oxygen Concentration - - Weight 87.1 kg (192 lb) 01/28/2025 1:00 PM EDT Height 169.5 cm (5' 6.75 ) 01/28/2025 1:00 PM ED T Body Mass Index 30.3 01/28/2025 1:00 PM EDT Plan of Treatment Upcoming Encounters Date Type Department Care Team (Late st Contact Info) Description 05/04/2025 3:00 PM EST Office Visit [facility] [address] [place] [address] Chidi Adair PA-C [address] [place] [address] 08/07/2025 4:00 PM EST Office Visit [facility] [address] [place] [address] [address] Floor, [address] [place] [address] Konstantin Buenrostro MD [address] [place] [id number] Health Maintenance Due Date Last Done Comments COLOGUARD 2012 FIT TEST 2012 SIGMOIDOSCOPY 2012 VIRTUAL COLONOSCOPY 2012 PNEUMOCOCCAL VACCINES (50+ years) (1 of 1 - PCV) 2017 PAP SMEAR 06/11/2020 06/11/2017, 02/16/2016 FOBT 11/30/2020 12/01/2019 INFLUENZA VACCINE (#1) 2025 , 03/15/2022, 08/15/2019, Additional history exists COVID-19 VACCINE ( season) 2025 07/03/2020, 06/05/2020 POTASSIUM LEVEL 01/28/2026 01/28/2025, 12/03, 06/18/2024, Additional history exists TSH LEVEL 01/28/2026 01/28/2025, 12/03, 03/13/2024, Additional history exists DEPRESSION SCREENING 02/24/2026 02/24/2025, 01/27/20 25 MAMMOGRAM 03/23/2027 04/28/2025, 03/05, 03/23/2025, Additional history exists SCREENING FOR DIABETES 01/29/2028 , 01/13/2025, 12/30/2024, Additional history exists COLONOSCOPY 07/02/2029 07/02/2019 COLORECTAL CANCER SCREENING 07/02/2029 LIPID PANEL 01/28/2030 01/28/2025, 12/03, 12/30/2024, Additional history exists Adult Td,Tdap Booster 03/15/2032 03/15/2022 , 07/14/2015, 01/12/2012 RSV VACCINE (1 - 1-dose 75+ series) 2042 HEPATITIS C SCREENING Completed 01/24/2023 HIV ONE-TIME SCREENING (18-65 YEARS) Completed 01/24/2023 SMOKING STATUS SCREENING (Once After 26 Yrs) Completed 01/28/2025 ZOSTER VACCINES Completed 01/28/2025, 10/14/2020 REPEAT PHQ Completed 02/24/2025, 01/26/2025 HEPATITIS A VACCINES Aged Out No long er eligible based on patient's age to complete this topic HIB VACCINES Aged Out No longer eligi ble based on patient's age to complete this topic MENINGOCOCCAL VACCINES (ACWY) Aged Out No longer eligible based on patient's age to complete this topic MENINGOCOCCAL VACCINES (B) Aged Out N o longer eligible based on patient's age to complete this topic Medical Devices Not on file Procedures Procedure Name Priority Date/Time Associated Diagnosis Comments MAMMOGRAPHY Routine 04/28/2025 3:08 PM EST MCT (MOBILE CARDIAC TELEMETRY) Routine 03/31/2025 12:52 PM EDT Transient cerebral ischemia, unspecified type MAMMOGRAPHY Routine 03/23/2025 3:29 PM EDT MAMMOGRAPHY Routine 03/23/2025 10:43 AM EDT OUTSIDE ECG Routine 03/11/2025 4:36 PM EDT OUTSIDE MONITOR Routine 03/11/2025 11:34 AM EDT OUTSIDE ECG Routine 03/10/2025 4:00 PM EDT OUTSIDE ECG Routine 03/10/2025 3:54 PM EDT OUTSIDE ECG Routine 03/10/2025 3:45 PM EDT OUTSIDE ECG Routine 03/10/2025 3:44 PM EDT OUTSIDE ECG Routine 03/10/2025 3:40 PM EDT OUTSIDE ECG Routine 03/03/2025 1:36 PM EDT OUTSIDE ECG Routine 03/03/2025 1:36 PM EDT OUTSIDE ECG Routine 03/03/2025 1:35 PM EDT OUTSIDE ECG Routine 03/03/2025 1:35 PM EDT TTE COMPREHENSIVE W/ AGITATED SALINE Routine 03/03/2025 12:03 PM EDT Transient cerebral ischemia, unspecified type CT HEAD WITHOUT CONTRAST Routine 02/23/2025 12:45 PM EDT Transient cerebral ischemia, unspecified type US CAROTID DUPLEX COMPLETE (BILATERAL) Routine 01/29/2025 2:51 PM EDT Transient cerebral ischemia, unspecified type LIPID PANEL Routine 01/28/2025 2:39 PM EDT Routine general medical examination at a health care facility GLUCOSE, FASTING Routine 01/28/2025 2:39 PM EDT Routine general medical examination at a health care facility COMPREHENSIVE METABOLIC PANEL (CMP) Routine 01/28/2025 2:39 PM EDT Routine general medical examination at a health care facility TSH WITH REFLEX Routine 01/28/2025 2:39 PM EDT Acquired hypothyroidism TISSUE TRANSGLUTAMINASE IGA/IGG Routine 01/28/2025 2:39 PM EDT Generalized abdominal pain IMMUNOGLOBULIN A Routine 01/28/2025 2:39 PM EDT Generalized abdominal pain OUTSIDE GLUCOSE FASTING Routine 12/30/2024 HEPATITIS C ANTIBODY, QUALITATIVE Routine 01/24/2023 2:19 PM EDT Need for hepatitis C screening test COLONOSCOPY FOR RESULT ENTRY ONLY Routine 07/02/2019 PAP SMEAR FOR RESULT ENTRY ONLY Routine 06/11/2017 from Last 3 Months or Most Recently Relevant to Health Maintenance Results * MAMMOGRAPHY FOR RESULT ENTRY ONLY (04/28/2025 3:08 PM EST) us Historical Provider HEALTH MAINTENANCE Final Result * MCT (Mobile Cardiac Telemetry) (03/31/2025 12:52 [...] CV CARDIAC SERVICES ORDERABLE S Final Result * HM MAMMOGRAPHY FOR RESULT ENTRY ONLY (03/23/2025 3:29 PM EDT) Historical Provider HEALTH MAINTENANCE Final Result * HM MAMMOGRAPHY FOR RESULT ENTRY ONLY (03/23/2025 10:43 AM EDT) Result [facility] Provider HEALTH MAINTENANCE Final Result * Outside ECG Report Only (03/11/2025 4:36 PM EDT) Only the most recent of10 resultswithin the time period is included. Result [facility] Historical Provider ECG ORDERABLES Final Res ult * Outside Monitor Report Only (03/11/2025 11:34 AM EDT) Result [facility] Historical Provider CV CARDIAC SERVICES ORDER QUINTON Final Result * TTE COMPREHENSIVE W/ AGITATED SALINE (03/03/2025 12:03 PM EDT) Body Surface Area 1.98 m2 Height 170 cm Weight 87 kg Systolic BP 112 mmHg Diastolic BP 62 mmHg Left Atrium Dimension Anterior-Posterior 45 15 - 40 mm Aortic Valve Mean Gradient 5 mmHg Aortic Valve Time Velocity Integral 379.0 mm Aortic Valve Peak Velocity 1.6 m/s Aortic Valve Peak Gradient 10 mmHg Aortic Sinus Diameter 31 <40 mm Ascending Aorta Diameter 32 <36 mm Inferior Vena Cava Diameter 15 <21 mm Interventricular Septum Thickness 9 6 - 11 mm Left Ventricle Internal Diameter End Diastole 49 37 - 52 mm Left Ventricle Internal Diameter End Systole 31 <35 mm Left Ventricular Outflow Tract Diameter 21.0 mm LVOT VTI REST 285.0 mm Left Ventricular Outflow Tract Velocity 1.3 m/s Left Ventricular Outflow Tract Gradient at Rest 7 mmHg Left Ventricular Posterior Wall Thickness 9 6 - 11 mm Left Ventricle Ea Lateral Wave Speed 14.7 cm/s Left Ventricle Ea Septal Wave Speed 9.8 cm/s Ejection Fraction 65 50 - 75 Percent Left Ventricle A Wave Speed 71.8 cm/s Left Ventricle E Wave Speed 96.5 cm/s Pulmonary Valve Peak Velocity 1.2 m/s Pulmonary Valve Peak Gradient 6 mmHg Right Ventricle Basal Diameter 35 25 - 41 mm Tricuspid Valve Peak Velocity 1.8 m/s Raw LV EF% 60 % MV E/E' Tissue Velocity Lateral 6.56 Relative Wall Thickness 0.37 0.22 - 0.42 Left Ventricle indexed to BSA 77.2 g/m2 MV E/A ratio 1.3 MV E/e' septal 9.85 Left Ventricle E/e' Average 8.2 Aortic Valve Prosthetic Peak Gradient 10 mmHg Aortic Valve Prosthetic Mean Gradient 5 mmHg Aortic Valve Sinus Index by BSA 16 mm/m2 Aorta Sinus Index by Height 1.82 cm/m Aorta Sinus CSA index by Height 4.44 cm2/m Ascending Aorta Index 16 mm/m2 Asc Aorta CSA Index by Height 4.73 cm2/m Right Ventricle to Right Atrium Pressure Gradient 13 mmHg Right Ventricle Peak Systolic Pressure (Assuming RAP 10) 23 mmHg MGB CV ECHO TV RVSP (ASSUMING RAP OF 5) 18 mmHg RVSP (Exclusive of RAP) 13 mmHg Pulmonic Valve Prosthetic Peak Gradient 6 mmHg MGB CV AV DIMENSIONLESS INDEX (PEAK) - STRESS ECHO DOBUT - REST 0.81 Ascending Aorta Index 16 mm Aortic Sinus Index 16 mm Ascending Aorta Diameter 16 mm Aortic Valve Sinus Index 1 16 19 - 27 mm AO ASC DIAM BSA INDEX 16.16 Echo E/Ea 9.85 Left Atrial Volume Index 29 16 - 34 mL/m2 Right Ventricle Peak Systolic Pressure 16 mmHg Right Ventricle TAPSE 27 >=17 mm Right Ventricle Pulse Doppler S Wave 12.0 >=9.5 cm/s Left Atrial Volume 58 mL Left Atrial Volume Index by Height 34 mL/m Right Atrium Pressure Estimated 3 mmHg Anatomical Region Laterality Modality Heart Ultrasound Narrative 03/04/2025 9:22 AM EDT Images from the original result were not included. 1. The indication is TIA. The estimated ejection fraction is normal at 65%. Diastolic function is normal left ventricular thickness is normal and regional wall motion is normal. 2. Normal RV size and function. 3. Trileaflet aortic valve there is no evidence of aortic stenosis, the ascending aortic root is normal size. 4. No mitral and no tricuspid insufficiency, 5. Normal pericardium in addition with the Valsalva maneuver there was no crossing of color from the right to left atrium. Left Ventricle The left ventricle is normal in size. There is normal wall thickness. The LV ejection fraction is 65% (calculated via the single dimension method). There are no wall motion abnormalities. The E/A ratio is 1.3. The e' septal wave velocity is 9.8 cm/s. The e' lateral wave velocity is 14.7 cm/s. The average E/e' ratio is 8.2. Right Ventricle The right ventricle is normal in size. The RV basal dimension is 35 mm. There is normal right ventricular systolic function. TAPSE is 27 mm. RV S' wave is 12.0 cm/s. Left Atrium The left atrium is normal in size. The left atrial volume index by BSA is 29 mL/m2. Right Atrium The right atrium is normal in size. The IVC is normal in size with normal inspiratory collapse. The IVC diameter is 15 mm. Mitral Valve The mitral valve appears normal. There is no mitral stenosis. There is no mitral regurgitation. Tricuspid Valve The tricuspid valve appears normal. There is no tricuspid stenosis. There is no tricuspid regurgitation. The RV systolic pressure was calculated at 16 mmHg (using TR peak velocity of 1.8 m/s and assuming an RA pressure of 3 mmHg). Aortic Valve The aortic valve is tricuspid. There is no aortic stenosis. There is no aortic regurgitation. The visualized portions of the thoracic aorta appear normal in size. Pulmonic Valve The pulmonic valve appears normal. There is no pulmonic stenosis. There is no pulmonic regurgitation. Pericardium The pericardium appears normal. General Findings The image quality was adequate. Technique(s) used in the evaluation: Color flow Doppler and Spectral Doppler. Agitated saline was administered during the study. The predominant rhythm during the study was sinus. Comparison Findings There are no prior studies for comparison. IAS/IVS The interatrial septum appears normal. There are no detected shunting changes with maneuvers. us Chidi Adair PA-C CV ECHO ORDERABLES Final Resu lt * CT HEAD WITHOUT CONTRAST (02/23/2025 12:45 PM EDT) Anatomical Region Laterality Modality Head Computed Tomogra phy 02/24/2025 8:38 AM EDT Impressions 02/24/2025 8:41 AM EDT 1. No acute intracranial findings. Narrative 02/24/2025 8:[address] HEAD WITHOUT CONTRAST Referring clinician's provided indication for this examination in [facility]: * Transient ischemic attack (TIA) TECHNIQUE: Multidetector-row CT of the head was performed without intravenous contrast using tailored dose modulation techniques. Images were reconstructed in the axial, coronal, and sagittal planes. COMPARISON: None available. FINDINGS: Brain Parenchyma: No midline shift, mass effect, parenchymal hemorrhage, or evidence of acute territorial infarct. Ventricular System and Extra-Axial Spaces: No extra-axial fluid collections. Basal cisterns are patent. No hydrocephalus. Osseous and Extracranial Structures: The orbits are unremarkable. No acute osseous abnormalities are identified. The paranasal sinuses and mastoid air cells are clear. Procedure Note Imelda Orellana MD - 02/24/2025 CT HEAD WITHOUT CONTRAST Referring clinician's provided indication for this examination in [facility]: *Transient ischemic attack (TIA) TECHNIQUE: Multidetector-row CT of the head was performed withoutintravenous contrast using tailored dose modulation techniques. Imageswere reconstructed in the axial, coronal, and sagittal planes. COMPARISON: None available. FINDINGS: Brain Parenchyma: No midline shift, mass effect, parenchymal hemorrhage,or evidence of acute territorial infarct. Ventricular System and Extra-Axial Spaces: No extra-axial fluidcollections. Basal cisterns are patent. No hydrocephalus. Osseous and Extracranial Structures: The orbits are unremarkable. No acuteosseous abnormalities are identified. The paranasal sinuses and mastoidair cells are clear. IMPRESSION: 1. No acute intracranial findings. us Chidi Adair PA-C IMG CT HEAD/NECK Final Result * US Carotid Duplex Complete (Bilateral) (01/29/2025 2:51 PM EDT) Anatomical Region Laterality Modality Heart, Thoracic Vasculature, Neck Ultrasound 01/29/2025 3:00 PM EDT Impressions 01/30/2025 12:46 PM EDT 1. No stenosis noted in the right internal carotid artery. 2. No stenosis noted in the left internal carotid artery. 3. No stenosis noted in the common carotid arteries bilaterally. 4. Unremarkable external carotid arteries bilaterally. 5. Antegrade flow in the bilateral cervical vertebral arteries. 6. Normal examination of the bilateral subclavian arteries. STENOSIS: Internal carotid artery stenosis by duplex ultrasonography has been validated by comparing findings with angiographic stenosis. NASCET methods were used, where the most severe stenosis represents the numerator, and the normal internal carotid artery diameter distal to the stenosis where the leonard are parallel represents the denominator. Narrative 01/30/2025 12:46 PM EDT US CAROTID DUPLEX COMPLETE (BILATERAL) Referring clinician's provided indication for this examination in Epic: Stroke / TIA TECHNIQUE: A duplex ultrasound evaluation of the common carotid, internal carotid, external carotid, vertebral, and subclavian arteries was performed using sawyer scale, color duplex and spectral Doppler analysis. COMPARISON: No relevant prior examinations FINDINGS: Exam Quality: Technically adequate exam. RIGHT Common Carotid Artery (cm/s): Proximal Systolic: 108 Proximal Diastolic: 28 Distal Systolic: 83 Distal Diastolic: 21 Internal Carotid Artery (cm/s): Proximal Systolic: 94 Proximal Diastolic: 29 Mid Systolic: 70 Mid Diastolic: 24 Distal Systolic: 78 Distal Diastolic: 26 External Carotid Artery (cm/s): Systolic: 98 Diastolic: 18 Vertebral Artery (cm/s): Systolic: 58 Diastolic: 17 Subclavian Artery (cm/s): Systolic: 109 Diastolic: 0 ICA/CCA Ratio: 1.1 ICA Stenosis: Normal ICA Plaque: None Visualized LEFT Common Carotid Artery (cm/s): Proximal Systolic: 131 Proximal Diastolic: 45 Distal Systolic: 88 Distal Diastolic: 30 Internal Carotid Artery (cm/s): Proximal Systolic: 88 Proximal Diastolic: 37 Mid Systolic: 107 Mid Diastolic: 39 Distal Systolic: 97 Distal Diastolic: 42 External Carotid Artery (cm/s): Systolic: 73 Diastolic: 16 Vertebral Artery (cm/s): Systolic: 50 Diastolic: 19 Subclavian Artery(cm/s): Systolic: 86 Diastolic: 0 ICA/CCA Ratio: 1.22 ICA Stenosis: Normal ICA Plaque: None Visualized Abbreviations: CCA = Common Carotid Artery. ICA = Internal Carotid Artery. ECA = External Carotid Artery. Vert = Vertebral Artery. ICA/CCA Ratio = maximal ICA PSV divided by the distal CCA PSV. DIRECT TEST FINDINGS: Right: Doppler flow velocities and waveform contours are within normal limits throughout the internal carotid artery, no plaque is visualized. No plaque is visualized in the common carotid artery. Unremarkable external carotid artery. Antegrade flow is noted in the vertebral artery. The subclavian artery is patent. Left: Doppler flow velocities and waveform contours are within normal limits throughout the internal carotid artery, no plaque is visualized. No plaque is visualized in the common carotid artery. Unremarkable external carotid artery. Antegrade flow is noted in the vertebral artery. The subclavian artery is patent. Procedure Note Fannie Bond MD - 01/30/2025 US CAROTID DUPLEX COMPLETE (BILATERAL) Referring clinician's provided indication for this examination in Epic:Stroke / TIA TECHNIQUE: A duplex ultrasound evaluation of the common carotid, internalcarotid, external carotid, vertebral, and subclavian arteries wasperformed using sawyer scale, color duplex and spectral Doppler analysis. COMPARISON: No relevant prior examinations FINDINGS: Exam Quality: Technically adequate exam. RIGHT Common Carotid Artery (cm/s): Proximal Systolic: 108 Proximal Diastolic: 28 Distal Systolic: 83 Distal Diastolic: 21 Internal Carotid Artery (cm/s): Proximal Systolic: 94 Proximal Diastolic: 29 Mid Systolic: 70 Mid Diastolic: 24 Distal Systolic: 78 Distal Diastolic: 26 External Carotid Artery (cm/s): Systolic: 98 Diastolic: 18 Vertebral Artery (cm/s): Systolic: 58 Diastolic: 17 Subclavian Artery (cm/s): Systolic: 109 Diastolic: 0 ICA/CCA Ratio: 1.1 ICA Stenosis: Normal ICA Plaque: None Visualized LEFT Common Carotid Artery (cm/s): Proximal Systolic: 131 Proximal Diastolic: 45 Distal Systolic: 88 Distal Diastolic: 30 Internal Carotid Artery (cm/s): Proximal Systolic: 88 Proximal Diastolic: 37 Mid Systolic: 107 Mid Diastolic: 39 Distal Systolic: 97 Distal Diastolic: 42 External Carotid Artery (cm/s): Systolic: 73 Diastolic: 16 Vertebral Artery (cm/s): Systolic: 50 Diastolic: 19 Subclavian Artery(cm/s): Systolic: 86 Diastolic: 0 ICA/CCA Ratio: 1.22 ICA Stenosis: Normal ICA Plaque: None Visualized Abbreviations: CCA = Common Carotid Artery. ICA = Internal Carotid Artery. ECA =External Carotid Artery. Vert = Vertebral Artery. ICA/CCA Ratio = maximalICA PSV divided by the distal CCA PSV. DIRECT TEST FINDINGS: Right: Doppler flow velocities and waveform contours are within normallimits throughout the internal carotid artery, no plaque is visualized. [place] is visualized in the common carotid artery. Unremarkable externalcarotid artery. Antegrade flow is noted in the vertebral artery. Thesubclavian artery is patent. Left: Doppler flow velocities and waveform contours are within normallimits throughout the internal carotid artery, no plaque is visualized. [place] is visualized in the common carotid artery. Unremarkable externalcarotid artery. Antegrade flow is noted in the vertebral artery. Thesubclavian artery is patent. IMPRESSION: 1. No stenosis noted in the right internal carotid artery. 2. No stenosis noted in the left internal carotid artery. 3. No stenosis noted in the common carotid arteries bilaterally. 4. Unremarkable external carotid arteries bilaterally. 5. Antegrade flow in the bilateral cervical vertebral arteries. 6. Normal examination of the bilateral subclavian arteries. STENOSIS: Internal carotid artery stenosis by duplex ultrasonography hasbeen validated by comparing findings with angiographic stenosis. NASCETmethods were used, where the most severe stenosis represents thenumerator, and the normal internal carotid artery diameter distal to thestenosis where the leonard are parallel represents the denominator. Chidi Adair PA-C CV US NEUROVASCULAR Final Res ult * Glucose, fasting (01/28/2025 2:39 PM EDT) Pathologist [facility] FASTING GLUCOSE 87 70 - 95 mg/dL [facility] Blood 01/28/2025 2:39 PM EDT 01/28/2025 2:42 PM EDT Chidi Adair PA-C LAB BLOOD BKR ORDERABLES Nia l Result [facility] [address] [place] [address] * TISSUE TRANSGLUTAMINASE IGA/IGG (01/28/2025 2:39 PM EDT) TTG IGA ANTIBODY <1.2 <4.0 (Negative) U/mL [facility] TTG ANTIBODY IGG 5.4 <6.0 (Negative) U/mL [facility] Blood 01/28/2025 2:39 PM EDT 01/28/2025 2:43 PM EDT Chidi Adair PA-C LAB BLOOD BKR ORDERABLES Nia l Result [facility] LAB MED/PATH [facility] [address] [place] [address] * Comprehensive metabolic panel (01/28/2025 2:39 PM EDT) SODIUM 139 133 - 146 mmol/L [facility] POTASSIUM 4.4 3.3 - 5.1 mmol/L [facility] CHLORIDE 104 96 - 108 mmol/L [facility] CO2 25 21 - 35 mmol/L [facility] BUN 18 6 - 19 mg/dL [facility] CREATININE 0.80 0.5 - 1.5 mg/dL [facility] GLUCOSE 96 70 - 99 mg/dL [facility] ALBUMIN 4.5 3.9 - 4.8 g/dL [facility] TOTAL PROTEIN 7.3 6.5 - 8.0 g/dL [facility] CALCIUM 9.6 8.4 - 10.3 mg/dL [facility] ALKALINE PHOSPHATASE 73 39 - 117 U/L [facility] TOTAL BILIRUBIN 0.5 0.0 - 1.2 mg/dL [facility] AST 21 0 - 37 U/L [facility] ALT 17 0 - 40 U/L [facility] GLOBULIN 2.8 1 - 4.8 g/dL [facility] EGFR 86 >59 mL/min/1.7 3m2 [facility] Comment:Estimated glomerular filtration rate calculated using the CKD-EPI refit equation. ANION GAP 14 10 - 20 mmol/L [facility] Blood 01/28/2025 2:39 PM EDT 01/28/2025 2:42 PM EDT Chidi Adair PA-C LAB BLOOD BKR ORDERABLES Nia l Result Performing Organization Address City/[facility]/ZIP Co de Phone Number [address] [address] * TSH with reflex (01/28/2025 2:39 PM EDT) Pathologist [facility] TSH 2.92 0.27 - 4.20 uIU/mL [facility] Blood 01/28/2025 2:39 PM EDT 01/28/2025 2:42 PM EDT Chidi Adair PA-C LAB BLOOD BKR ORDERABLES Nia l Result Performing Organization Address [facility]/ZIP Co de Phone Number [address] [address] * Immunoglobulin A (01/28/2025 2:39 PM EDT) Pathologist [facility] IgA 179 70 - 400 mg/dL [facility] Blood 01/28/2025 2:39 PM EDT 01/28/2025 2:42 PM EDT Chidi Adair PA-C LAB BLOOD BKR ORDERABLES Nia l Result Performing Organization Address [facility] Co de Phone Number [address] [address] * (ABNORMAL) Lipid panel (01/28/2025 2:39 PM EDT) [facility] HDL 46 mg/dL [facility] Comment: Interpretation <40 mg/dL: Low HDL cholesterol (major risk factor for CHD) Greater than or equal to 60 mg/dL: High HDL cholesterol ( negative risk factor for CHD) HDL - cholesterol is affected by a number of factors, e.g. smoking, excerise, hormones, sex and age. CHOLESTEROL 223 0 - 240 mg/dL [facility] TRIGLYCERIDES 224(H) 30 - 160 mg/dL [facility] LDL 132(H) 50 - 129 mg/dL [facility] Comment: LDL levels in terms of risk for coronary heart disease: <100 mg/dL: Optimal 100-129 mg/dL: Near or above optimal 130-159 mg/dL: Borderline high 160-189 mg/dL: High >190 mg/dL: Very High CARDIAC RISK RATIO 4.8(H) 3.3 - 4.4 C [facility] Blood 01/28/2025 2:39 PM EDT 01/28/2025 2:43 PM EDT Chidi Adair PA-C LAB BLOOD BKR ORDERABLES Nia l Result [address] [address] * (ABNORMAL) Outside Glucose,Fasting (12/30/2024) Glucose, fasting - External 119(A) 65 - 99 mg/dL Result [facility] Historical Provider LAB BLOOD ORDERABLES Nia l Result * Hepatitis C antibody, qualitative (01/24/2023 2:19 PM EDT) HCV NON-REACTIV E NON-REACTI VE [facility] Blood 01/24/2023 2:19 PM EDT 01/24/2023 2:25 PM EDT Result [facility] Darlin Rucker NP LAB BLOOD BKR ORDERABLES Final Result Performing Organization Address [facility]/ZIP Co de Phone Number [address] [address] * HM COLONOSCOPY FOR RESULT ENTRY ONLY (07/02/2019) Colonoscopy hyperplastic Historical Provider HEALTH MAINTENANCE Final Result * HM PAP SMEAR FOR RESULT ENTRY ONLY (06/11/2017) Historical Provider HEALTH MAINTENANCE Final Result from Last 3 Months or Most Recently Relevant to Health Maintenance Insurance [address] [place] [id number] [facility] [address] [place] [id number] [facility] [address] [place] [id number] [facility] [address] [place] [address] [facility] [address] [place] [address] [facility] [address] [place] [address] [facility] Care Teams Soil Scientist Relationship Specialty Start Date End Date Chidi Adair PA-C [address] [place] [address] [email or web address] PCP - General Physician School Library Media Specialist 12/26/23 Moira Garcia DO [address] [place] [address] [address] [place] [address] Obstetrics and Gynecology 07/26/21 Joshua Middleton MD [address] [place] [address] [email or web address] Insurance Assigned Provider 06/09/24 Additional Source Comments The information contained in this document represents components of the legal health record. It is not the complete legal health record.[facility]
--- OUTSIDE RECORDS SUMMARY | 2025-04-28 16:29 | XMS_ITS | Encounter Summary ---
Author Organization [facility] Address [address] [place] [id number] Phone Care Team Providers Care Movie Star Name Role Phone JoseMoira Melvina DO Unavailable [phone] Chidi Adair PA-C Primary Care Provider [phone] Joshua Middleton MD Unavailable [phone] Encounter Details Date Type Department Care Team (Late st Contact Info) Description 03/31/2025 Orders Only [facility] [place] [facility] [address] [facility] [place] [address] Provider, MD [place] [address] [place], [place] [id number] Social History Tobacco Use Types Packs/Day Years [...] high school, GED, job training, learning the Bangl[place] language, technical skills, or developing parenting skills)? [...] Description 05/04/2025 3:00 PM EST Office Visit [facility] Internal Medicine [address] [place] [address] Chidi Adair PA-C [address] [place] [address] 08/07/2025 4:00 PM EST Office Visit [facility] [address] [place] [address] [address] Floor, [address] [place] [address] Konstantin Buenrostro MD [address] [place] [address] documented as of this encounter Procedures Procedure Name Priority Date/Time Associated Diagnosis Comments OUTSIDE MONITOR Routine 03/11/2025 11:34 AM EDT documented in this encounter Results * Outside Monitor Report Only (03/11/2025 11:34 AM EDT) us Historical Provider CV CARDIAC SERVICES ORDER [place] Final Result documented in this encounter Visit Diagnoses Not on filedocumented in this encounter Additional Health Concerns Assessment Noted Time PHQ-9 Depression Total Score: 14 01/26/ 025 9:19 AM EDT PHQ-2 Depression Total Score: 0 02/25/20 25 8:28 AM EDT documented as of this encounter Care Teams Movie Star Relationship Specialty Start Date End Date Chidi Adair PA-C [address] [place] [address] [email or web address] PCP - General Physician Neurology Professor 12/26/23 Moira Garcia DO [address] [place] [address] [address] [place] [address] Obstetrics and Gynecology 07/26/21 Joshua Middleton MD [address] [place] [id number] [email or web address] Insurance Assigned Provider 06/09/24 documented as of this encounter Additional Source Comments The information contained in this document represents components of the legal health record. It is not the complete legal health record.[facility]
== END 2025-04-28 12:51 | disposition home or self-care (01) ==
LOC: HO.MAMMO 12:50
PROVIDERS: PCP Physician Assistant Surgical; Visit Provider Obstetrics & Gynecology
DX: R92.8 Other abnormal and inconclusive findings on diagnostic imaging of breast (principal); Z86.018 Personal history of other benign neoplasm; Z98.890 Other specified postprocedural states
CPT/HCPCS: 77061; 77065

== ENCOUNTER → 2025-04-28 13:00 | Outpatient (BNV) | payer BC, SELFPAY | PROVIDERS: PCP Physician Assistant Surgical; Visit Provider Radiology Body Imaging | DX: R92.8 Other abnormal and inconclusive findings on diagnostic imaging of breast (principal) | CPT/HCPCS: 77061; 77065 ==

== ENCOUNTER 2025-05-06 11:01 | Outpatient (AMB) | payer BC, SELFPAY ==
--- OUTSIDE RECORDS SUMMARY | 2025-05-04 15:00 | XMS_ITS | Encounter Summary ---
Author Organization [facility] Address [address] [place] [address] Phone Care Team Providers Care Souvenir And Novelty Maker Name Role Phone Moira Garcia Unavailable Chidi Adair PA-C Primary Care Provider [phone] Joshua Middleton MD Unavailable [phone] Reason for Visit * Reason Comments Follow Up Visit 3 months (around ) for Recheck. Urgent care last week and previous, still feels drained, right eye redness, dizziness Encounter Details Date Type Department Care Team (Latest Contact Info) Description 05/04/2025 3:00 PM EST Office Visit [facility] Internal Medicine [address] [place], [place] [phone] Chidi Adair PA-C [address] [place] [address] [email or web address] Mixed hyperlipidemia (Primary Dx); Hypothyroidism, unspecified type; Generalized anxiety disorder Social History Tobacco Use Types Packs/Day Years Used Date Smoking Tobacco: Former Cigarettes 0.3 23.8 0 12/17/1978 - 10/02/2002 Smokeless Tobacco: Never Alcohol Use Standard Drinks/Week Comments Yes 0 (1 standard drink = 0.6 oz pure alcohol) 3-4 drinks, once a month at most Child or Family Care Answer Date Record ed Do you have problems with on e of the following making it difficult for you to work, study, or receive health care? No 01/26/2025 Education Answer Date Recorded Are you interested in help w ith more adult education (for example, completing high school, GED, job training, learning the Russian language, technical skills, or developing parenting skills)? [...] on file documented as of this encounter Last Filed Vital Signs Vital Sign Reading Time Taken Comments Blood Pressure 122/68 05/04/2025 2:59 PM EST Pulse 65 05/04/2025 2:59 PM EST Temperature - - Respiratory Rate 19 05/04/2025 2:59 PM EST Oxygen Saturation 95% 05/04/2025 2:59 PM EST Inhaled Oxygen Concentration - - Weight 85.9 kg (189 lb 6.4 oz) 05/04/2025 2:59 P M EST Height 169.5 cm (5' 6.73 ) 05/04/2025 2:59 PM ES T Body Mass Index 29.9 05/04/2025 2:59 PM EST documented in this encounter Progress Notes * Chidi Adair PA-C - 05/04/2025 3:00 PM EST FOLLOW UP Subjective Ramonita Parker is a 60 y.o. female. History of Present Illness Patient here for 3-month follow-up for hypothyroidism, hyperlipidemia, and anxiety Patient with a history of anxiety who is currently on Zoloft 50 mg daily and lorazepam 0.5 mg p.o. daily as needed Patient with a history of hypothyroidism who is maintained on levothyroxine 88 mcg daily. Her last TSH was 2.92 back in January 2025.. Patient with a history of hyperlipidemia with her last LDL showing 132 and triglycerides of 224 back in January 2025. She is currently on Lipitor 20 mg p.o. daily. She sought urgent care the week before due to a severe sore throat that developed overnight. A rapid strep test conducted on Sunday yielded negative results. Despite experiencing neckpain, no physical examination was performed, and she was prescribed a steroid. After taking the steroid for three days, she discontinued it due to palpitations. Although her throat symptoms improved,she began experiencing headaches and nasal congestion. During a virtual consultation on Sunday, shewas prescribed doxycycline for her nasal congestion and headaches. She has completed the course of doxycycline but continues to feel fatigued. She tested herself for COVID-19 at home, which was negative. She did not experience any cough. On Sunday, she noticed her eye appeared bloodshot. She was only swabbed for strep and not for influenza. She reported back pain during her virtual consultation, which she described as similar to pneumonia-related pain. They prescribed a course of doxycycline which she took twice daily for 7 days she mentions since taking the medication she has improved she typically falls ill in the fall season. She missed work from Sunday to Sunday, and again on Sunday,but returned on Sunday. However, she had to leave early due to physical exhaustion. She returned to work today and managed well, but anticipates a busy week ahead with work and classes scheduled from Sunday to Sunday. I did explain to the patient that I suspect that she may have had COVID given her symptoms and continued fatigue. 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 Review of Systems Constitutional: Positive for fatigue. Past Medical History: Diagnosis Date Alopecia Anxiety disorder Hypothyroidism medications Medication Sig Start Date End Date Taking? Authorizing Provider ascorbic acid (VITAMIN C ORAL) Take by mouth. Cl[place]ton Soares MD aspirin 81 mg chewable tablet Take 1 tablet (81 mg total) by mouth daily. 01/13/25 Chey Guerin PA-C atorvastatin (LIPITOR) 20 MG tablet TAKE 1 TABLET(20 MG) BY MOUTH DAILY 03/23/25 Fay Milian PA-C cholecalciferol (VITAMIN D3) 2,000 unit tablet Take 4,000 Units by mouth daily. Clifton Soares MD doxycycline monohydrate (MONODOX) 100 MG capsule Take 1 capsule (100 mg total) by mouth 2 (two) times a day. 04/27/25 Alvarez Cormier PA-C, MPH estradioL (VAGIFEM) [address] 10 mcg vaginally 2 (two) times a week. 03/07/24 Clifton Soares MD FA/niacinamide/cupric ox/Zn ox (NICOTINAMIDE ORAL) Take 500 mg by mouth daily. [place] Soares MD levothyroxine (SYNTHROID, LEVOTHROID) 88 MCG tablet TAKE 1 TABLET(88 MCG) BY MOUTH EVERY MORNING 07/14/24 Chidi Adair PA-C LORazepam (ATIVAN) 0.5 MG tablet Take 1 tablet (0.5 mg total) by mouth daily as needed for anxiety (must last one month). 03/03/25 Chidi Adair PA-C MELATONIN ORAL Take 10 mg by mouth nightly at bedtime. ProviderClifton MD rhubarb root extract (ESTROVERA ORAL) Take by mouth. ProviderClifton MD sertraline (ZOLOFT) 50 MG tablet TAKE 1 TABLET(50 MG) BY MOUTH DAILY 09/29/24 Chidi Adair PA-C spironolactone (ALDACTONE) 50 MG tablet Take 150 mg by mouth daily. 12/13/23 ProviderClifton MD Objective Physical Exam Vitals: 05/04/25 1459 BP: 122/68 BP Location: Right arm Patient Position: Sitting Cuff Size: Large Pulse: 65 Resp: 19 SpO2: 95% Weight: 85.9 kg (189 lb 6.4 oz) Height: 169.5 cm (5' 6.73 ) General appearance no acute distress HEENT normocephalic atraumatic, oropharynx is without erythema or exudate. Positive submandibular lymphadenopathy. Heart regular rate and rhythm no murmurs rubs or gallops Lungs clear to auscultation bilaterally no wheezes rales or rhonchi Results Assessment & Plan Assessment & Plan Mixed hyperlipidemia Patient with a history of hyperlipidemia whose last LDL was noted at 132 and triglycerides of 224 back in January 2025. She is maintained on Lipitor 20 mg daily which will be continued. We will also obtain a repeat lipid panel Hypothyroidism, unspecified type Patient with a history of hypothyroidism who is on levothyroxine 88 mcg daily which will be continued. Her last TSH was well within normal limits back in January 2025. We will obtain a repeat TSH level Generalized anxiety disorder Patient with a history of anxiety who is maintained on Zoloft 50 mg daily and lorazepam 0.5 mg p.o.daily as needed. MassPAT verified we will continue these current medications I personally spent a total of 23 minutes on care for this patient on the date of the encounter. This includes [id number] time during the visit as well as non [id number] time spent on chart review, documentation, and care coordination. I obtained verbal consent from the patient or their proxy to record this visit for purposes of producing a draft of the encounter documentation. Chidi Adair PA-C documented in this encounter Miscellaneous Notes * Assessment & Plan Note - Chidi Adair PA-C - 05/04/2025 3:00 PM EST Associated Problem(s): Mixed hyperlipidemia Patient with a history of hyperlipidemia whose last LDL was noted at 132 and triglycerides of 224 back in January 2025. She is maintained on Lipitor 20 mg daily which will be continued. We will also obtain a repeat lipid panel * Assessment & Plan Note - Chidi Adair PA-C - 05/04/2025 3:00 PM EST Associated Problem(s): Hypothyroidism Patient with a history of hypothyroidism who is on levothyroxine 88 mcg daily which will be continued. Her last TSH was well within normal limits back in January 2025. We will obtain a repeat TSH level * Assessment & Plan Note - Chidi Adair PA-C - 05/04/2025 3:00 PM EST Associated Problem(s): Anxiety disorder Patient with a history of anxiety who is maintained on Zoloft 50 mg daily and lorazepam 0.5 mg p.o.daily as needed. SherrillT verified we will continue these current medications documented in this encounter Plan of Treatment Upcoming Encounters Date Type Department Care Team (Late st Contact Info) Description 08/05/2025 4:00 PM EST Office Visit [facility] Internal Medicine [address] [place] [address] Chidi Adair PA-C [address] [place] [address] [email or web address] 08/07/2025 4:00 PM EST Office Visit [facility] [address] [place] [address] [address]rd Floor, [address] [place] [address] Konstantin Buenrostro MD [address] [place] [address] [email or web address] documented as of this encounter Results * Thyroid Stimulating Hormone (TSH), with Reflex (05/04/2025 3:46 PM EST) Pathologist [facility] TSH 2.56 0.40 - 5.00 uIU/mL 05/04/2025 8:52 PM EST Blood (Blood) Venipuncture / Unknown 05/04/2025 3:46 PM EST 05/04/2025 3:46 PM EST us Chidi Adair PA-C LAB BLOOD BKR ORDERABLES Nia l Result [address] [place] [address] * (ABNORMAL) Lipid Panel (05/04/2025 3:46 PM EST) Cholesterol 153 <200 mg/dL 05/04/2025 8:52 PM EST HDL 41 >=40 mg/dL 05/04/2025 8:52 PM EST Calculated LDL 67 <130 mg/dL 05/04/2025 8:52 PM EST Comment:LDL is calculated us ing the Charles-NIH equation (SAYDA Cardiol. 2019October 02;5(5):540-548). Non-HDL Cholesterol 112 mg/dL 05/04/2025 8:52 PM EST Comment:Guidelines suggest a non-HDL cholesterol goal 30 mg/dL higher than the patient-specific LDL cholesterol goal. Cardiac Risk Ratio 3.7 0.0 - 5.0 2024 8:52 PM EST Triglycerides 285(H) <=150 mg/dL 05/04/2025 8:52 PM [facility] Blood (Blood) Venipuncture / Unknown 05/04/2025 3:46 PM EST 05/04/2025 3:46 PM EST us Chidi Adair PA-C LAB BLOOD BKR ORDERABLES Nia ochoa Result Performing Organization Address City/State/[facility] Co de Phone Number [address] [address] documented in this encounter Visit Diagnoses Diagnosis Mixed hyperlipidemia- Primary Hypothyroidism, unspecified type Generalized anxiety disorder documented in this encounter Additional Health Concerns Assessment Noted Time PHQ-9 Depression Total Score: 14 01/26/ 025 9:19 AM EDT PHQ-2 Depression Total Score: 0 02/25/20 25 8:28 AM EDT documented as of this encounter Care Teams Souvenir And Novelty Maker Relationship Specialty Start Date End Date Chidi Adair PA-C [address] [place] [address] [email or web address] PCP - General Physician Exhibit Specialist 12/26/23 Moira Garcia DO [address] [place] [address] [address] [place] [address] Obstetrics and Gynecology 07/26/21 Joshua Middleton MD [address] [place] [address] [email or web address] Insurance Assigned Provider 06/09/24 documented as of this encounter Additional Source Comments The information contained in this document represents components of the legal health record. It is not the complete legal health record.[facility]
--- NOTE | 2025-05-06 11:10 | A.OFFVIS_ITS ---
VS Expanded 05/06/25 11:12 05/06/25 11:17 Height 5 ft 7 in 5 ft 7 in Weight 189 lb 189 lb BMI 29.6 29.6 Intake Visit Reasons: wt loss Allergies amoxicillin Allergy (Verified 03/23/25 11:29) Unknown vancomycin Allergy (Verified 03/23/25 11:29) Unknown methylcellulose (Citrucel) Adverse Reaction (Unknown, Verified 03/23/25 11:29) upset stomach, diarrhea Nutrition Presentation Details: Pt presents for MNT for hypertriglyceridemia Patient reports working on prevention of weight gain throughout her life. Patient currently follows a gluten free diet, patient reports noticing skin rash when consuming gluten as well as GI symptoms and since stopping gluten GI symptoms have disappeared and rash as well food frequency fish: no fruits: 0-1/d veg: daily dairy: 3/d sweets+ physical activity: sedentary etoh/smoking --- BS Monitoring Most Recent Diabetes Results: Cholesterol, (<200) 203 mg/dL H 12/30/24 HDL Cholesterol, (>40) 37 mg/dL L 12/30/24 Triglycerides, (<150) 249 mg/dL H 12/30/24 Creatinine, (0.5-1.4) 0.82 mg/dL 01/10/25 BUN, (9-16) 16 mg/dL 01/10/25 Sodium, (135-145) 138 mmol/L 01/10/25 Potassium, (3.3-5.1) 4.7 mmol/L 01/10/25 Chloride, (96-108) 104 mmol/L 01/10/25 Carbon Dioxide, (22-29) 25 mmol/L 01/10/25 Calcium, (8.4-10.2) 9.5 mg/dL 01/10/25 AST, (5-31) 27 U/L 01/10/25 ALT, (0-31) 29 U/L 01/10/25 Total Protein, (6.5-8.0) 7.8 g/dL 01/10/25 Albumin, (3.5-5.0) 4.9 g/dL 01/10/25 BWQ-[id number]-Rx.Jeor Equation Height: 5 ft 7 in Weight: 189 lb Resting Metabolic Rate: 1473.70 Calculated Activity Level: Sedentary Calories Needed to Maintain Weight: 1768.44 Diagnosis Nutrition problem #1: altered nutrition labs As related to (etiology) #1: excess energy intake As evidenced by (sign/symptom) #1: abnormal serum lipids PFSH Medical History (Updated 05/06/25 @ 13:[address], LDN) Hypothyroidism IBS (irritable bowel syndrome) Anxiety disorder Surgical History (Updated 03/23/25 @ 11:29 by Valerie Gtz) History of partial hysterectomy Hx of colonoscopy History of lumpectomy of right breast Hx of section Social History (System 03/23/25 @ 11:29 by Valerie Gtz) Are you a primary hospice home care coordinator to a significant other at home: No Do you presently have visiting nurse or other home services: No Alcohol intake: current Alcohol intake frequency: a few times a month Patient Tobacco Use Status: Never used Tobacco Assessment & Plan Assessment & Plan (1) Hypertriglyceridemia: Code(s): E78.1 - Pure hyperglyceridemia Category: Medical Plan: current wt: 86 kg ( 05/28 ) est kcal needs as per MSJ: 1800 est protein needs as per 1 g/kg BW: 90 est fluid needs as per 30 ml/kg BW: 2600 Recommended fiber > 12 g /day and gradually increase up to 25-28 g /day or as tolerated Recommended sodium intake: Less than 2300 mg per day less otherwise specified by Nutrition topics discussed : Reviewed (R), Pt verbalized understanding (V) , not applicable (N/A) R, : Healthy Plate Method Concept: R, V, N/A: Carbohydrates: food sources of carbohydrates, relationship of carbohydrates to blood glucose, fatty liver GI health. Recommended total amount of carbohydrates per meals and snack. Differences between simple carbohydrates and complex carbohydrates R, : Lean protein foods including vegan , vegetarian sources of protein. Benefits of protein (including but not limited to healing, nutritional value , benefits in weight loss, glucose control R, : Fats : Source of fats, benefits of fats. Difference between saturated and unsaturated fats. Saturated fats and its contribution to inflammation R, : Fiber: food sources and role of fiber in the diet (including but not limited to its role as a prebiotic, benefits in constipation, role in IBS , role in glucose control and cholesterol level) R, : Hydration: role of hydration and prevention of dehydration or over hydration. Foods and water content. R, V, N/A: Vitamins and Minerals in foods and supplements R, V, N/A: Interpreting food labels, including serving size, macronutrients, vitamins, minerals, allergens, ingredient list , % daily value Patient Instructions: Work on having a scheduled meal pattern, reducing on empty calorie snacks Choose foods higher in fiber (beans lentils, or oats fruits, veggies) Include omega-3 fatty acids (yogurt which she associates had it as a bedtime snack) Coding Level of Care Code Nutr Indiv Intake (62446) Diagnoses Hypertriglyceridemia E78.1 Time Spent (min) 30
[2025-05-06 11:12] VITALS: BMI 29.6
[2025-05-06 11:17] VITALS: BMI 29.6
--- OUTSIDE RECORDS SUMMARY | 2025-05-06 13:02 | XMS_ITS | Encounter Summary ---
Author Organization [facility] Address [address] [place] [address] Phone Care Team Providers Care Brazer Induction Name Role Phone JoseMoira Melvina ESPAÑA Unavailable [phone] Chidi Adair PA-C Primary Care Provider [phone] Joshua [place] MD Unavailable [phone] Encounter Details Date Type Department Care Team (Late st Contact Info) Description 04/28/2025 Orders Only [facility] [place] Internal Medicine [address] [place] [address] Provider, MD [place] [address] [place], [place] [id number] Social History Tobacco Use Types Packs/Day Years [...] high school, GED, job training, learning the Faroese language, technical skills, or developing parenting skills)? [...] Description 08/05/2025 4:00 PM EST Office Visit [facility] Internal Medicine [address] [place] [address] Chidi Adair PA-C [address] [place] [address] [email or web address] 08/07/2025 4:00 PM EST Office Visit [facility] [address] [place] [address] [address]rd Floor, [address] [place] [address] Konstantin Buenrostro MD [address] [place] [address] documented as of this encounter Procedures Procedure [...] documented as of this encounter Care Teams Brazer Induction Relationship Specialty Start Date End Date Chidi Adair PA-C [address] [place] [address] PCP - General Physician Spot Welder 12/26/23 Moira Garcia DO [address] [place] [address] [address] [place] [address] Obstetrics and Gynecology 07/26/21 Joshua [place] MD [address] [place] [address] [email or web address] Insurance Assigned Provider 06/09/24 documented as of this encounter Additional Source Comments The information contained in this document represents components of the legal health record. It is not the complete legal health record.[facility]
--- OUTSIDE RECORDS SUMMARY | 2025-05-06 13:02 | XMS_ITS | Encounter Summary ---
Author Organization [facility] Address [address] [place] [address] Phone Care Team Providers Care Ceiling Insulation Blower Name Role Phone JoseMoira Melvina ESPAÑA Unavailable [phone] Chidi Adair PA-C Primary Care Provider [phone] Joshua [place] MD Unavailable [phone] Encounter Details Date Type Department Care Team (Late st Contact Info) Description 04/06/2025 Orders Only [facility] [place] Internal Medicine 40 [place] [address] Provider, MD [place] [address] [place], [place] [id number] Social History Tobacco Use Types Packs/Day Years [...] high school, GED, job training, learning the German language, technical skills, or developing parenting skills)? [...] Description 08/05/2025 4:00 PM EST Office Visit [facility] Internal Medicine [address] [place] [address] Chidi Adair PA-C [address] [place] [address] 08/07/2025 4:00 PM EST Office Visit [facility] [address] [place] [address] [address]rd Floor, [address] [place] [address] Konstantin Buenrostro MD [address] [place] [address] documented as of this encounter Procedures Procedure Name Priority Date/Time Associated Diagnosis Comments MAMMOGRAPHY Routine 03/23/2025 3:29 PM EDT documented [...] documented as of this encounter Care Teams Ceiling Insulation Blower Relationship Specialty Start Date End Date Chidi Adair PA-C [address] [place] [address] PCP - General Physician Parts Washer 12/26/23 Moira Garcia DO [address] [place] [address] Drive [address] [place] [address] Obstetrics and Gynecology 07/26/21 Joshua [place] MD [address] [place] [address] [email or web address] Insurance Assigned Provider 06/09/24 documented as of this encounter Additional Source Comments The information contained in this document represents components of the legal health record. It is not the complete legal health record.[facility]
--- OUTSIDE RECORDS SUMMARY | 2025-05-06 13:02 | XMS_ITS | Encounter Summary ---
Author Organization [facility] Address [address] [place] [address] Phone Care Team Providers Care Supervisor Metal Furniture Assembly Name Role Phone JoseRoselynMoiraniki Hein DO Unavailable [phone] Chidi Adair PA-C Primary Care Provider [phone] Joshua [place] MD Unavailable [phone] Encounter Details Date Type Department Care Team (Late st Contact Info) Description 01/28/2025 Procedure Pass Non-Invasive Cardiology [address] [place] [address] Social History Tobacco Use Types Packs/Day Years [...] high school, GED, job training, learning the Lao language, technical skills, or developing parenting skills)? [...] Description 08/05/2025 4:00 PM EST Office Visit [facility] [place] Internal Medicine [address] [place], [place] [phone] Chidi Adair PA-C [address] [place] [address] 08/07/2025 4:00 PM EST Office Visit [facility] [address] [place] [address] [address] Floor, [address] [place] [address] Konstantin Buenrostro MD [address] [place] [address] documented as of this encounter Visit Diagnoses Not on filedocumented in this encounter Additional Health Concerns Assessment Noted Time PHQ-9 Depression Total Score: 14 025 9:19 AM EDT PHQ-2 Depression Total Score: 0 02/25/20 25 8:28 AM EDT documented as of this encounter Care Teams Supervisor Metal Furniture Assembly Relationship Specialty Start Date End Date Chidi Adair PA-C [address] [place] [phone] [email or web address] PCP - General Physician Bottom Pounder Cement Shoes 12/26/23 Moira Garcia DO [address] [place] [address] [address] [place] [address] Obstetrics and Gynecology 07/26/21 Joshua [place] MD [address] [place] [phone] Insurance Assigned Provider 06/09/24 documented as of this encounter Additional Source Comments The information contained in this document represents components of the legal health record. It is not the complete legal health record.[facility]
--- OUTSIDE RECORDS SUMMARY | 2025-05-06 13:02 | XMS_ITS | Encounter Summary ---
Author Organization [facility] Address [address] [place] [address] Phone Care Team Providers Care Boss Miner Name Role Phone JoseRoselynMoiraniki Hein DO Unavailable [phone] Chidi Adair PA-C Primary Care Provider [phone] Joshua Middleton MD Unavailable [phone] Reason for Referral * Hospital - Outpatient - Closed Specialty Diagnoses / Procedures Referred By Colin fabian Referred To Contact Diagnoses Transient cerebral ischemia, unspecified type Procedures MCT (Mobile Cardiac Telemetry) Event Monitor Looping up to 30 Days Chidi Adair PA-C [address] [place] [address] Phone: tel: fax: [email or web address]:[email or web address] Referral ID Status Reason Start Date Expiration Date Visits Re quested Visits Authorized [id number] Closed 01/28/2025 01/28/2026 1 1 Encounter Details Date Type Department Care Team (Latest Contact Info) Description 03/04/2025 Ancillary Orders [facility] Internal Medicine [address] [place], [place] [phone] Chidi Adair PA-C [address] [place], [place] [phone] [email or web address] Routine general medical examination at a health [...] high school, GED, job training, learning the Pakistani language, technical skills, or developing parenting skills)? [...] Description 08/05/2025 4:00 PM EST Office Visit [facility] [address] [place] [address] Chidi Adair PA-C [address] [place] [address] 08/07/2025 4:00 PM EST Office Visit [facility] [address] [place] [address] 3rd Floor, [address] [place] [address] Konstantin Buenrostro MD [address] [place] [phone] documented as of this encounter Results * [...] pain Abdominal pain, generalized Hypertriglyceridemia Pure hyperglyceridemia documented in this encounter Additional Health Concerns Assessment Noted Time PHQ-9 Depression Total Score: 14 01/26/ 025 9:19 AM EDT PHQ-2 Depression Total Score: 0 02/25/20 25 8:28 AM EDT documented as of this encounter Care Teams Boss Miner Relationship Specialty Start Date End Date Chidi dAair PA-C [address] [place] [address] [email or web address] PCP - General Physician Ram Car Operator 12/26/23 Moira Garcia DO [address] [place] [address] [address] [place] [address] Obstetrics and Gynecology 07/26/21 Joshua Middleton MD [address] [place] [phone] [email or web address] Insurance Assigned Provider 06/09/24 documented as of this encounter Additional Source Comments The information contained in this document represents components of the legal health record. It is not the complete legal health record.[facility]
--- OUTSIDE RECORDS SUMMARY | 2025-05-06 13:02 | XMS_ITS | Encounter Summary ---
Author Organization [facility] Address [address] [place] [address] [place] [address] Phone Care Team Providers Care Van Driver Name Role Phone JoseRoselynMoiraniki Hein DO Unavailable [phone] Chidi Adair PA-C Primary Care Provider [phone] Joshua Middleton MD Unavailable [phone] Encounter Details Date Type Department Care Team (Late st Contact Info) Description 01/28/2025 Procedure Pass [facility], Ct Scan - [address] [address] Social History Tobacco Use Types Packs/Day Years [...] high school, GED, job training, learning the Greek language, technical skills, or developing parenting skills)? [...] Description 08/05/2025 4:00 PM EST Office Visit [facility] Internal Medicine [address] [place], [place] [phone] Chidi Adair PA-C [address] [place] [address] 08/07/2025 4:00 PM EST Office Visit [facility] [address] [place] [address] 3rd Floor, [address] [place] [address] Konstantin Buenrostro MD [address] [place] [address] documented as of this encounter Visit Diagnoses Not on filedocumented in this encounter Additional Health Concerns Assessment Noted Time PHQ-9 Depression Total Score: 14 025 9:19 AM EDT PHQ-2 Depression Total Score: 4 01/27/20 25 9:19 AM EDT documented as of this encounter Care Teams Van Driver Relationship Specialty Start Date End Date Chidi Adair PA-C [address] [place] [address] PCP - General Physician Power Lineworker 12/26/23 Moira Garcia DO [address] [place] [address] [address] [place] [address] Obstetrics and Gynecology 07/26/21 Joshua Middleton MD [address] [place] [phone] Insurance Assigned Provider 06/09/24 documented as of this encounter Additional Source Comments The information contained in this document represents components of the legal health record. It is not the complete legal health record.[facility]
--- OUTSIDE RECORDS SUMMARY | 2025-05-06 13:02 | XMS_ITS | Clinical Summary ---
Author Organization [facility] Address [address] [place] [address] Phone Care Team Providers Care Station Jailer Name Role Phone Moira Garcia Melvina ESPAÑA Unavailable [phone] Chidi Adair PA-C Primary Care Provider [phone] Joshua Middleton MD Unavailable [phone] Allergies Active Allergy Reactions Criticality Noted Date Comments Amoxicillin Rash Low 12/03/2017 Vancomycin Hives,Itching,Palpitations Low 1 Medications MELATONIN ORAL Take 10 mg by mouth nightly at bedtime. Active spironolactone (ALDACTONE) 50 MG tablet Take 150 mg by mouth daily. 12/13/19 24 Active cholecalciferol (VITAMIN D3) 2,000 unit tablet Take 4,000 Units by mouth daily. Active ascorbic acid (VITAMIN C ORAL) Take by mouth. Active FA/niacinamide/ cupric ox/Zn ox (NICOTINAMIDE ORAL) Take 500 mg by mouth daily. Active estradioL (VAGIFEM) [address] 10 mcg vaginally 2 (two) times a week. 03/07/20 24 Active levothyroxine (SYNTHROID, LEVOTHROID) 88 MCG tabletIndicatio ns:Hypothyroidi sm TAKE 1 TABLET(88 MCG) BY MOUTH EVERY MORNING 90 tablet 3 07/14/19 25 Active sertraline (ZOLOFT) 50 MG tabletIndicatio ns:Anxiety disorder,Anacli tic depression TAKE 1 TABLET(50 MG) BY MOUTH DAILY 90 tablet 3 09/30/19 25 Active aspirin 81 mg chewable tabletIndicatio ns:Intermittent chest pain Take 1 tablet (81 mg total) by mouth daily. 30 tablet 2 01/14/20 25 Active rhubarb root extract (ESTROVERA ORAL) Take by mouth. Active LORazepam (ATIVAN) 0.5 MG tabletIndicatio ns:Anxiety disorder Take 1 tablet (0.5 mg total) by mouth daily as needed for anxiety (must last one month). 15 tablet 03/03/20 25 Active atorvastatin (LIPITOR) 40 MG tablet Take 1 tablet (40 mg total) by mouth daily. 30 tablet 2 05/05/20 25 Active atorvastatin (LIPITOR) 20 MG tabletIndicatio ns:Hypertriglyc eridemia TAKE 1 TABLET(20 MG) BY MOUTH DAILY 90 tablet 3 03/23/20 25 025 Discontinued doxycycline monohydrate (MONODOX) 100 MG capsuleIndicati ons:Sinusitis, unspecified chronicity, unspecified location Take 1 capsule (100 mg total) by mouth 2 (two) times a day. 14 capsule 04/27/20 25 Discontinued(No longer taking) Active Problems Problem Noted Date Diagnosed Date Mixed hyperlipidemia 04/27/2025 Assessment & Plan (04/27/2025 5:21 PM EST): Patient with a history of hyperlipidemia whose last LDL was noted at 132 and triglycerides of 224 back in January 2025. She is maintained on Lipitor 20 mg daily which will be continued. We will also obtain a repeat lipid panel Hordeolum externum of right lower eyelid Assessment & Plan (02/24/2025 9:48 AM EDT): [...] its own while in the ER at [facility] for chest pain back on 01/10/25. Patient [...] to the emergency department on 01/10/2025 at [facility]. We unfortunately do not have these records [...] (12/26/2023 10:21 AM EDT): Mammogram ordered for [facility] Hypothyroidism 06/05/2018 Assessment & Plan (04/27/2025 5:21 PM EST): Patient with a history of hypothyroidism who is on levothyroxine 88 mcg daily which will be continued. Her last TSH was well within normal limits back in January 2025. We will obtain a repeat TSH level Assessment & Plan (01/28/2025 12:58 PM EDT): [...] level Anxiety disorder 06/05/2018 Assessment & Plan (04/27/2025 5:21 PM EST): Patient with a history of anxiety who is maintained on Zoloft 50 mg daily and lorazepam 0.5 mg p.o. daily as needed. [facility] verified we will continue these current medications Assessment & Plan (01/28/2025 1:00 PM EDT): [...] A1c to further assess. Intermittent chest pain 01/13/202501/03 Assessment & Plan (01/13/2025 9:34 AM EDT): [...] CT abd/pelvis. Patient prefers to go to [facility]. Patient would like to be transported [...] Encounters Date Type Department Care Team Description 05/04/2025 3:00 PM EST Office Visit [facility] Internal Medicine [address] [facility] [place] [address] Chidi Adair PA-C Mixed hyperlipidemia (Primary Dx); Hypothyroidism, unspecified type; Generalized anxiety disorder 04/28/2025 Orders Only [facility] Internal Medicine [address] [facility] [place] [address] Clifton Soares MD 04/27/2025 9:00 AM EST Telemedicine [facility] [address] [place] [address] Alvarez Cormier PA-C, MPH Sinusitis, unspecified chronicity, unspecified location (Primary Dx) 04/22/2025 Telephone [facility] Internal [facility] [address] [facility] [place] [address] Chidi Adair, IGLESIA Triage (Green Call + Sore Throat) 04/06/2025 Orders Only [facility] Internal Medicine [address] [place] [address] Clifton Soares MD 03/31/2025 Orders Only [facility] Internal Medicine [address] [place] [address] Clifton Soares MD 03/24/2025 Orders Only [facility] Internal Medicine [address] [place] [address] Clifton Soares MD 03/22/2025 Refill [facility] Internal Medicine [address] [place] [address] Chidi Adair PA-C Medication Refill 03/11/2025 Orders Only [facility] Internal Medicine [address] [place] [address] ProviderClifton MD 03/04/2025 Telephone [facility] Internal Medicine [address] [place], [place] [phone] Chidi Adair PA-C Results 03/04/2025 Ancillary Orders [facility] Internal Medicine [address] [place] [address] Chidi Adair PA-C Routine general medical examination at a health care facility (Primary Dx); Acquired hypothyroidism; Generalized anxiety disorder; Breast cancer screening by mammogram; Transient cerebral ischemia, unspecified type; Generalized abdominal pain; Hypertriglyceridemia 03/03/2025 12:05 PM EDT - 03/03/2025 11:59 PM EDT Hospital Encounter Non-Invasive Cardiology [address] [place] [address] Chidi Adair PA-C Discharge Disposition: Home or Self Care 03/03/2025 11:27 AM EDT - 03/03/2025 12:04 PM EDT Hospital Encounter [facility] [address] [place] [address] Chidi Adair PA-C Discharge Disposition: Home or Self Care 03/03/2025 Orders Only [facility] Internal Medicine [address] [place] [address] ProviderClifton MD 02/24/2025 9:40 AM EDT Telemedicine [facility] [address] [place] [address] Michaela Pathak, SENIOR SOFTWARE TESTER Hordeolum externum of right lower eyelid (Primary Dx) 02/23/2025 12:29 PM EDT - 02/23/2025 11:59 PM EDT Hospital Encounter [facility], Ct Scan - [facility] [address] [place] [address] Chidi Adair PA-C Discharge Disposition: Home or Self Care 02/23/2025 Nurse Triage [facility] Internal Medicine [address] [place] [address] Chidi Adair PA-C Eye Problem 01/28/2025 Procedure Pass [facility]-Invasive Cardiology [address] [place] [address] 01/28/2025 Procedure Pass [facility] [address] [place] [address] 01/28/2025 Procedure Pass [facility], Ct Scan - [facility] [address] [place] [address] from Last 3 Months Immunizations Immunization Administration [...] high school, GED, job training, learning the Vietnamese language, technical skills, or developing parenting skills)? [...] Pulse 65 05/04/2025 2:59 PM EST Temperature 36.2 C (97.2 F) 01/13/2025 8:49 AM EDT Respiratory Rate 19 05/04/2025 2:59 PM EST Oxygen Saturation 95% 05/04/2025 2:59 PM EST Inhaled Oxygen Concentration - - Weight 85.9 kg (189 lb 6.4 oz) 05/04/2025 2:59 P M EST Height 169.5 cm (5' 6.73 ) 05/04/2025 2:59 PM ES T Body Mass Index 29.9 05/04/2025 2:59 PM EST Plan of Treatment Upcoming Encounters Date Type Department Care Team (Late st Contact Info) Description 08/05/2025 4:00 PM EST Office Visit [facility] Internal Medicine [address] [place] [address] Chidi Adair PA-C [address] [place] [address] 08/07/2025 4:00 PM EST Office Visit [facility] [address] [place] [address] 3rd Floor, [address] [place] [address] Konstantin Buenrostro MD [address] [place] [address] Health Maintenance Due Date Last Done Comments COLOGUARD 2012 FIT TEST 2012 SIGMOIDOSCOPY 2012 VIRTUAL COLONOSCOPY 2012 PNEUMOCOCCAL VACCINES (50+ years) (1 of 1 - PCV) 2017 PAP SMEAR 06/11/2020 06/11/2017, 02/16/2016 FOBT 11/30/2020 12/01/2019 INFLUENZA VACCINE (#1) 2025 3, 03/15/2022, 08/15/2019, Additional history exists COVID-19 VACCINE (3 - 2024- season) 2025 07/03/2020, 06/05/2020 POTASSIUM LEVEL 01/28/2026 01/28/2025, 12/03, 06/18/2024, Additional history exists DEPRESSION SCREENING 02/24/2026 02/24/2025, 01/27/20 TSH LEVEL 05/04/2026 05/04/2025, 01/03, 12/30/2024, Additional history exists MAMMOGRAM 04/28/2027 04/28/2025, 03/05, 03/23/2025, Additional history exists SCREENING FOR DIABETES 01/29/2028 , 01/13/2025, 12/30/2024, Additional history exists COLONOSCOPY 07/02/2029 07/02/2019 COLORECTAL CANCER SCREENING 07/02/2029 LIPID PANEL 05/04/2030 05/04/2025, 01/03, 12/30/2024, Additional history exists Adult Td,Tdap Booster 03/15/2032 03/15/2022 , 07/14/2015, 01/12/2012 RSV VACCINE (1 - 1-dose 75+ series) 2042 HEPATITIS C SCREENING Completed 01/24/2023 HIV ONE-TIME SCREENING (18-65 YEARS) Completed 01/24/2023 ZOSTER VACCINES Completed 01/28/2025, 10/14/2020 REPEAT PHQ Completed 02/24/2025, 01/26/2025 SMOKING STATUS SCREENING (Once After 26 Yrs) Completed 05/04/2025 HEPATITIS A VACCINES Aged Out No long [...] Procedure Name Priority Date/Time Associated Diagnosis Comments TSH WITH REFLEX Routine 05/04/2025 3:46 PM EST Hypothyroidism, unspecified type LIPID PANEL Routine 05/04/2025 3:46 PM EST Mixed hyperlipidemia MAMMOGRAPHY Routine 04/28/2025 3:08 PM EST MCT [...] PM EDT Transient cerebral ischemia, unspecified type COMPREHENSIVE METABOLIC PANEL (CMP) Routine 01/28/2025 2:39 PM EDT Routine general medical examination at a [facility] care facility OUTSIDE GLUCOSE FASTING Routine 12/30/2024 HEPATITIS C ANTIBODY, QUALITATIVE Routine 01/24/2023 2:19 PM EDT Need for hepatitis C screening test HM COLONOSCOPY FOR RESULT ENTRY ONLY Routine 07/02/2019 PAP SMEAR FOR RESULT ENTRY ONLY Routine 06/11/2017 from Last 3 Months or Most Recently Relevant to Health Maintenance Results * Thyroid Stimulating Hormone (TSH), with Reflex (05/04/2025 3:46 PM EST) TSH 2.56 0.40 - 5.00 uIU/mL 05/04/2025 8:52 PM EST [facility] Blood (Blood) Venipuncture / Unknown 05/04/2025 3:46 PM EST 05/04/2025 3:46 PM EST us Chidi Adair PA-C LAB BLOOD BKR ORDERABLES Nia l Result [facility] [address] [place] [address] * (ABNORMAL) Lipid Panel (05/04/2025 3:46 PM EST) Cholesterol 153 <200 mg/dL 05/04/2025 8:52 PM EST [facility] HDL 41 >=40 mg/dL 05/04/2025 8:52 PM [facility] Calculated LDL 67 <130 mg/dL 05/04/2025 8:52 PM [facility] Comment:LDL is calculated us ing the Charles-NIH equation (SAYDA Cardiol. 2019October 02;5(5):540-548). Non-HDL Cholesterol 112 mg/dL 05/04/2025 8:52 PM [facility] Comment:Guidelines suggest a non-HDL cholesterol goal 30 mg/dL higher than the patient-specific LDL cholesterol goal. Cardiac Risk Ratio 3.7 0.0 - 5.0 2024 8:52 PM [facility] Triglycerides 285(H) <=150 mg/dL 05/04/2025 8:52 PM [facility] Blood (Blood) Venipuncture / Unknown 05/04/2025 3:46 PM EST 05/04/2025 3:46 PM EST Chidi Adair PA-C LAB BLOOD BKR ORDERABLES Nia l Result [address] [address] * HM MAMMOGRAPHY FOR RESULT ENTRY ONLY (04/28/2025 3:08 PM EST) Historical Provider HEALTH MAINTENANCE Final Result * [...] RESULT ENTRY ONLY (03/23/2025 10:43 AM EDT) Historical Provider HEALTH MAINTENANCE Final Result * Outside ECG Report Only (03/11/2025 4:36 PM EDT) Only the most recent of10 resultswithin the time period is included. Historical Provider ECG ORDERABLES Final Res ult * Outside Monitor Report Only (03/11/2025 11:34 AM EDT) Result [facility] Historical Provider CV CARDIAC SERVICES ORDER [...] provided indication for this examination in Epic: * Transient ischemic attack (TIA) TECHNIQUE: Multidetector-row [...] provided indication for this examination in Epic: *Transient ischemic attack (TIA) TECHNIQUE: Multidetector-row CT [...] clear. IMPRESSION: 1. No acute intracranial findings. Chidi Adair PA-C IMG CT HEAD/NECK Final Result * Comprehensive metabolic panel (01/28/2025 2:39 PM EDT) SODIUM 139 133 - 146 mmol/L [facility] POTASSIUM 4.4 3.3 - 5.1 mmol/L [facility] CHLORIDE 104 96 - 108 mmol/L [facility] CO2 25 21 - 35 mmol/L [facility] BUN 18 6 - 19 mg/dL [facility] CREATININE 0.80 0.5 - 1.5 mg/dL [facility] GLUCOSE 96 70 - 99 mg/dL [facility] ALBUMIN 4.5 3.9 - 4.8 g/dL [facility] TOTAL PROTEIN 7.3 6.5 - 8.0 g/dL [facility] CALCIUM 9.6 8.4 - 10.3 mg/dL [facility] ALKALINE PHOSPHATASE 73 39 - 117 U/L [facility] TOTAL BILIRUBIN 0.5 0.0 - 1.2 mg/dL [facility] AST 21 0 - 37 U/L [facility] ALT 17 0 - 40 U/L [facility] GLOBULIN 2.8 1 - 4.8 g/dL [facility] EGFR 86 >59 mL/min/1.7 3m2 [facility] Comment:Estimated glomerular filtration rate calculated using the CKD-EPI refit equation. ANION GAP 14 10 - 20 mmol/L [facility] Blood 01/28/2025 2:39 PM EDT 01/28/2025 2:42 PM EDT Chidi Adair PA-C LAB BLOOD BKR ORDERABLES Nia l Result Performing Organization Address City/[facility]/ZIP Co de Phone Number [address] [address] * (ABNORMAL) Outside Glucose,Fasting (12/30/2024) Glucose, fasting - External 119(A) 65 - 99 mg/dL Historical Provider LAB BLOOD ORDERABLES Nia l Result * Hepatitis C antibody, qualitative (01/24/2023 2:19 PM EDT) HCV NON-REACTIV E NON-REACTI VE [facility] Blood 01/24/2023 2:19 PM EDT 01/24/2023 2:25 PM EDT us Darlin Rucker NP LAB BLOOD BKR ORDERABLES Final Result Performing Organization Address City/[facility]/ZIP Co de Phone Number [address] [phone] * HM COLONOSCOPY FOR RESULT ENTRY ONLY (07/02/2019) HM Colonoscopy hyperplastic Historical Provider HEALTH MAINTENANCE Final Result * HM PAP SMEAR FOR RESULT ENTRY ONLY (06/11/2017) us Historical Provider HEALTH MAINTENANCE Final Result from Last 3 Months or Most Recently Relevant to Health Maintenance Insurance [facility] Care Teams Station Jailer Relationship Specialty Start Date End Date Chidi Adair PA-C [address] [place] [address] [email or web address] PCP - General Physician Glass Inspector 12/26/23 Moira Garcia DO [address] [place] [address] [address] [place] [address] Obstetrics and Gynecology 07/26/21 Joshua Middleton MD [address] [place] [address] [email or web address] Insurance Assigned Provider 06/09/24 Additional Source Comments The information contained in this document represents components of the legal health record. It is not the complete legal health record.[facility]
--- OUTSIDE RECORDS SUMMARY | 2025-05-06 13:02 | XMS_ITS | Encounter Summary ---
Author Organization [facility] Address [address] [place] [address] Phone Care Team Providers Care Flyer Repairer Name Role Phone JoseRoselynMoiraniki Hein DO Unavailable [phone] Chidi Adair PA-C Primary Care Provider [phone] Joshua Middleton MD Unavailable [phone] Encounter Details Date Type Department Care Team (Late st Contact Info) Description 01/28/2025 Procedure Pass [facility] [address] [place] [address] Social History Tobacco Use Types Packs/Day Years [...] high school, GED, job training, learning the [place] language, technical skills, or developing parenting skills)? [...] 08/05/2025 4:00 PM EST Office Visit [facility] Internal Medicine [address] [place] [address] Chidi Adair PA-C [address] [place] [address] 08/07/2025 4:00 PM EST Office Visit [facility] [address] [place] [address] 3rd Floor, [address] [place] [address] Konstantin Buenrostro MD [address] [place] [address] documented as of this encounter Visit Diagnoses Not on filedocumented in this encounter Additional Health Concerns Assessment Noted Time PHQ-9 Depression Total Score: 14 025 9:19 AM EDT PHQ-2 Depression Total Score: 0 02/25/20 25 8:28 AM EDT documented as of this encounter Care Teams Flyer Repairer Relationship Specialty Start Date End Date Chidi Adair PA-C [address] [place] [address] PCP - General Physician Talent Development Specialist 12/26/23 Moira Garcia DO [address] [place] [address] [address] [place] [address] Obstetrics and Gynecology 07/26/21 Joshua Middleton MD [address] [place] [phone] Insurance Assigned Provider 06/09/24 documented as of this encounter Additional Source Comments The information contained in this document represents components of the legal health record. It is not the complete legal health record.[facility]
--- OUTSIDE RECORDS SUMMARY | 2025-05-06 13:02 | XMS_ITS | Encounter Summary ---
Author Organization [facility] Address [address] [place] [address] Phone Care Team Providers Care Water Gas Operator Name Role Phone JoseRoselynMoiraniki Hein DO Unavailable [phone] Cihdi Adair PA-C Primary Care Provider [phone] Joshua Middleton MD Unavailable [phone] Reason for Visit * Reason Onset Date Comments Triage 04/22/2025 Green Call + Sor e Throat Encounter Details Date Type Department Care Team (Late st Contact Info) Description 04/22/2025 Telephone [facility] Internal Medicine [address] [place], [place] [phone] Chidi Adair PA-C [address] [place], [place] [phone] [email or web address] Triage (Green Call + Sore Throat) Social [...] high school, GED, job training, learning the Georgian language, technical skills, or developing parenting skills)? [...] Complete the Following for ALL Patient Symptoms [facility] Red Touchet Yellow Green Tool Call Back Number: (& caller's name if not the patient) [phone] Description of Symptoms: What symptoms are you [...] Description 08/05/2025 4:00 PM EST Office Visit [facility] [address] [place] [address] Chidi Adair PA-C [address] [place] [address] 08/07/2025 4:00 PM EST Office Visit [facility] [address] [place] [address] [address] Floor, [address] [place] [address] Konstantin Buenrostro MD [address] [place] [address] [email or web address] documented as of this encounter Visit Diagnoses Not on filedocumented in this encounter Additional Health Concerns Assessment Noted Time PHQ-9 Depression Total Score: 14 025 9:19 AM EDT PHQ-2 Depression Total Score: 0 02/25/20 25 8:28 AM EDT documented as of this encounter Care Teams Water Gas Operator Relationship Specialty Start Date End Date Chidi Adair PA-C [address] [place] [address] [email or web address] PCP - General Physician Emergency Communications Operator 12/26/23 Moira Garcia DO [address] [place] [address] [address] [place] [address] Obstetrics and Gynecology 07/26/21 Joshua Middleton MD [address] [place] [address] [email or web address] Insurance Assigned Provider 06/09/24 documented as of this encounter Additional Source Comments The information contained in this document represents components of the legal health record. It is not the complete legal health record.[facility]
--- OUTSIDE RECORDS SUMMARY | 2025-05-06 13:02 | XMS_ITS | Encounter Summary ---
Author Organization [facility] Address [address] [place] [address] Phone Care Team Providers Care President/[employer]m Production [employer] Live Experiences Name Role Phone JoseMoira Melvina DO Unavailable [phone] Chidi Adair PA-C Primary Care Provider [phone] Joshua Middleton MD Unavailable [phone] Encounter Details Date Type Department Care Team (Late st Contact Info) Description 03/31/2025 Orders Only [facility] Internal Medicine [address] [place] [address] Provider, MD [place] [address] [place], [place] [id number] Social History Tobacco Use Types Packs/Day Years [...] high school, GED, job training, learning the Ghanaian language, technical skills, or developing parenting skills)? [...] Description 08/05/2025 4:00 PM EST Office Visit [facility] Internal Medicine [address] [place] [address] Chidi Adair PA-C [address] [place] [address] [email or web address] 08/07/2025 4:00 PM EST Office Visit [facility] [address] [place] [address] [address]rd Floor, [address] [place] [address] Konstantin Buenrostro MD [address] [place] [address] documented as of this encounter Procedures Procedure [...] documented as of this encounter Care Teams President/Gm Production & Live Experiences Relationship Specialty Start Date End Date Chidi Adair PA-C [address] [place] [address] PCP - General Physician Brineyard Supervisor 12/26/23 Moira Garcia DO [address] [place] [address] [address] [place] [address] Obstetrics and Gynecology 07/26/21 Joshua Middleton MD [address] [place] [phone] [email or web address] Insurance Assigned Provider 06/09/24 documented as of this encounter Additional Source Comments The information contained in this document represents components of the legal health record. It is not the complete legal health record.[facility]
== END 2025-05-06 13:25 | disposition home or self-care (01) ==
LOC: HO.ENCR 11:02
PROVIDERS: PCP Physician Assistant Surgical; Visit Provider Dietitian, Registered
DX: E78.1 Pure hyperglyceridemia (principal)

== ENCOUNTER → 2025-05-06 11:01 | Outpatient (BNVA) | payer BC, SELFPAY | PROVIDERS: PCP Physician Assistant Surgical; Visit Provider Dietitian, Registered | DX: E78.1 Pure hyperglyceridemia (principal); Z71.3 Dietary counseling and surveillance | CPT/HCPCS: 97802 ==